=== PATIENT | female | born 1950 | race Two or more races ===

== ENCOUNTER 2022-07-30 08:44 | Emergency (ER) | payer OTHER ==
[~2022-07-30] VITALS: Ht 162.6 cm; Wt 57.4 kg
[2022-07-30] MEDS ORDERED: SODIUM CHLORIDE 0.9% 1,000 ML IV ONE (09:45)
[2022-07-30] MEDS ORDERED: KETOROLAC TROMETH 30 MG/ML 1ML VIAL IV ONE (09:45)
[2022-07-30] MEDS ORDERED: ONDANSETRON HCL 4 MG/2 ML VIAL IV ONE (09:45)
[2022-07-30 10:20] LABS: Urine Bacteria NONE SEEN /hpf (None Seen); Urine Blood 1+ /uL (Negative); Urine Specific Gravity 1.007 (1.001-1.035); Urine WBC 1 /hpf (0 - 5)
[2022-07-30 10:22] LABS: Basophils # (auto) 0 10 ^3/uL (0-0.2); Basophils % (auto) 0.7 % (0.0-2.0); Eosinophils # (auto) 0.2 10 ^3/uL (0-0.8); Eosinophils % (auto) 2.8 % (0.0-7.0); Hematocrit 46.1 % (36.0-46.0); Hemoglobin 15.3 g/dL (12.2-16.2); Lymphocytes # (auto) 1.8 10 ^3/uL (0.4-5.4); Lymphocytes % (auto) 26.9 % (10.0-50.0); Mean Corpuscular Hemoglobin 30.4 pg (28.0-32.0); Mean Corpuscular Hgb Conc. 33.2 g/dL (32.0-36.0); Mean Corpuscular Volume 91.4 fL (80.0-100.0); Monocytes # (auto) 0.4 10 ^3/uL (0-1.3); Monocytes % (auto) 6.7 % (0.0-12.0); Neutrophils # (auto) 4.2 10 ^3/uL (1.6-8.6); Neutrophils % (auto) 62.9 % (37.0-80.0); Nucleated Red Blood Cells % 0.2 %; Red Blood Cells 5.05 10^6/uL (4.0-5.20); Red Cell Distribution Width 14.6 % (11.8-14.3); White Blood Cell 6.7 10^3/uL (4.4-10.8)
[2022-07-30 10:36] LABS: Albumin 3.9 g/dL (3.4-5.0); Calcium 9.8 mg/dL (8.5-10.1)
[2022-07-30 10:40] LABS: Bilirubin, Total 0.9 mg/dL (0.2-1.0); Total Protein 8.5 g/dL (6.4-8.2)
[2022-07-30] MEDS ORDERED: IOHEXOL 300 MG/ML 100ML BOTTLE IJ ONE (11:39)
[2022-07-30 16:00] VITALS: BP 122/64
== END 2022-07-30 19:52 | disposition left against medical advice (07) ==
LOC: ER 08:51
DX: M54.50 Low back pain, unspecified (principal)
CPT/HCPCS: 36415; 74177; 80053; 81001; 83690; 85025; 96361; 96374; 96375; 99285; J1885; J2405; J7030; Q9967

== ENCOUNTER 2022-10-07 09:35 | Emergency (ER) | payer OTHER ==
[~2022-10-07] VITALS: Ht 162.6 cm; Wt 56.6 kg
[2022-10-07 10:19] LABS: Basophils # (auto) 0 10 ^3/uL (0-0.2); Eosinophils # (auto) 0.3 10 ^3/uL (0-0.8); Eosinophils % (auto) 6.3 % (0.0-7.0); Hematocrit 42.6 % (36.0-46.0); Hemoglobin 14.7 g/dL (12.2-16.2); Lymphocytes # (auto) 1.5 10 ^3/uL (0.4-5.4); Lymphocytes % (auto) 29.9 % (10.0-50.0); Mean Corpuscular Hemoglobin 31.1 pg (28.0-32.0); Mean Corpuscular Hgb Conc. 34.5 g/dL (32.0-36.0); Mean Corpuscular Volume 90.3 fL (80.0-100.0); Monocytes # (auto) 0.3 10 ^3/uL (0-1.3); Monocytes % (auto) 5.9 % (0.0-12.0); Neutrophils # (auto) 2.8 10 ^3/uL (1.6-8.6); Neutrophils % (auto) 56.9 % (37.0-80.0); Nucleated Red Blood Cells % 0.1 %; Red Blood Cells 4.71 10^6/uL (4.0-5.20); Red Cell Distribution Width 15.3 % (11.8-14.3)
[2022-10-07 10:39] LABS: Albumin 3.4 g/dL (3.4-5.0); Calcium 8.5 mg/dL (8.5-10.1); Potassium 3.5 mmol/L (3.5-5.1)
[2022-10-07 10:43] LABS: BUN/Creatinine Ratio 14.7; Bilirubin, Total 1.2 mg/dL (0.2-1.0); Total Protein 6.8 g/dL (6.4-8.2)
[2022-10-07 10:48] LABS: INR 1.1 (0.9-1.15); Partial Thromboplastin Time 29.1 sec (24.6-33.4)
[2022-10-07 13:29] LABS: Urine Bacteria MANY /hpf (None Seen); Urine Blood Negative /uL (Negative); Urine Mucus FEW (None Seen); Urine WBC 5 /hpf (0 - 5)
[2022-10-07 15:50] VITALS: BP 160/80
== END 2022-10-07 15:52 | disposition home or self-care (01) ==
LOC: ER 09:35
DX: D69.6 Thrombocytopenia, unspecified (principal); I10 Essential (primary) hypertension; M32.8 Other forms of systemic lupus erythematosus; M79.7 Fibromyalgia; Z90.49 Acquired absence of other specified parts of digestive tract; Z90.710 Acquired absence of both cervix and uterus
CPT/HCPCS: 36415; 80053; 81001; 85025; 85610; 85730; 86850; 86900; 86901; 93005

== ENCOUNTER 2023-10-28 08:34 | Emergency (ER) | payer OTHER ==
[~2023-10-28] VITALS: Ht 162.6 cm; Wt 68.0 kg
[2023-10-28 09:10] VITALS: BP 138/57; PULSE 73; RESP 16; TEMP 99.1; O2SAT 97
[2023-10-28] MEDS ORDERED: ACET-1080 PO (10:18)
[2023-10-28] MEDS: HYDROcodone-ACET 5/325MG TAB PO ONE (10:22)
== END 2023-10-28 10:24 | disposition home or self-care (01) ==
LOC: ER 08:34
DX: S76.012A Strain of muscle, fascia and tendon of left hip, initial encounter (principal); I10 Essential (primary) hypertension; Z90.49 Acquired absence of other specified parts of digestive tract; Z90.710 Acquired absence of both cervix and uterus; W18.2XXA Fall in (into) shower or empty bathtub, initial encounter; Y93.89 Activity, other specified; Y92.89 Other specified places as the place of occurrence of the external cause; Y99.8 Other external cause status
CPT/HCPCS: 73502

== ENCOUNTER 2024-01-02 20:20 | Inpatient (IN) | payer OTHER ==
[~2024-01-02] VITALS: Ht 162.6 cm; Wt 71.0 kg
[~2024-01-02 20:20] MED LIST: ACET-1080 PO
[2024-01-02] MEDS: dilTIAZem 25 MG/5 ML VIAL IV ONE (21:24)
[2024-01-02 21:33] LABS: Basophils # (auto) 0.1 10 ^3/uL (0-0.2); Basophils % (auto) 0.8 % (0.0-2.0); Eosinophils # (auto) 0.2 10 ^3/uL (0-0.8); Eosinophils % (auto) 2.6 % (0.0-7.0); Lymphocytes % (auto) 32.6 % (10.0-50.0); Mean Corpuscular Hgb Conc. 28.5 g/dL (32.0-36.0); Mean Corpuscular Volume 66.8 fL (80.0-100.0); Monocytes # (auto) 0.5 10 ^3/uL (0-1.3); Neutrophils # (auto) 3.3 10 ^3/uL (1.6-8.6); Red Blood Cells 3.14 10^6/uL (4.0-5.20)
[2024-01-02 21:34] LABS: Red Cell Distribution Width 20.6 % (11.8-14.3)
[2024-01-02 21:42] LABS: Alanine Aminotransferase 19 U/L (7-40); Alkaline Phosphatase 134 U/L (46-116); Anion Gap 9 (5-15); Aspartate Aminotransferase 23 U/L (13-40); Blood Urea Nitrogen 21 mg/dL (9-23); Calcium 8.4 mg/dL (8.7-10.4); Carbon Dioxide 18 mmol/L (20-30); Chloride 112 mmol/L (98-107); Glucose 106 mg/dL (74-106); Magnesium 1.9 mg/dL (1.6-2.6); Potassium 4.5 mmol/L (3.5-5.1); Sodium 139 mmol/L (136-145)
[2024-01-02 21:43] LABS: Albumin 3.5 g/dL (3.2-4.8); Bilirubin, Total 0.6 mg/dL (0.2-1.0); Total Protein 6.3 g/dL (5.7-8.2)
[2024-01-02 21:45] VITALS: PULSE 140; RESP 20; O2SAT 95
[2024-01-02 21:53] LABS: INR 1.3 (0.9-1.15); Prothrombin Time 13.5 sec (9.3-11.8)
[2024-01-03] VITALS (8 sets, daily range): BP systolic 93–152; BP diastolic 30–57; PULSE 75–98; RESP 14–21; TEMP 97.7–98.8; O2SAT 98–100
[2024-01-03] MEDS: dilTIAZem 25 MG/5 ML VIAL IV ONE (00:18)
[2024-01-03] MEDS: FUROSEMIDE 40 MG/4 ML VIAL IV ONE (00:45)
[2024-01-03] MEDS ORDERED: ACETAMINOPHEN 325 MG TAB PO PRN (00:45)
[2024-01-03] MEDS ORDERED: ONDANSETRON HCL 4 MG/2 ML VIAL IV PRN (00:45)
[2024-01-03] MEDS: SODIUM CHLORIDE 0.9% 250 ML IV ONE (00:50)
[2024-01-03] MEDS ORDERED: METOPROLOL TARTRATE 1MG/1ML-5ML VIAL IV PRN (01:00)
[2024-01-03] MEDS: ENOXAPARIN SOD 100 MG/1 ML SYRINGE SC SCH (01:09)
[2024-01-03] MEDS: AMIODARONE BOLUS KIT 100 ML IV ONE (03:56)
[2024-01-03] MEDS: AMIODARONE 450mg/250ml AE 250 ML IV SCH ×2 (04:26→10:04)
[2024-01-03] MEDS: HYDROcodone-ACET 5/325MG TAB PO PRN (05:22)
[2024-01-03 05:46] LABS: Basophils # (auto) 0.1 10 ^3/uL (0-0.2); Basophils % (auto) 0.8 % (0.0-2.0); Eosinophils # (auto) 0.3 10 ^3/uL (0-0.8); Eosinophils % (auto) 3.4 % (0.0-7.0); Hematocrit 18.5 % (36.0-46.0); Lymphocytes % (auto) 26.3 % (10.0-50.0); Mean Corpuscular Hemoglobin 19.6 pg (28.0-32.0); Mean Corpuscular Hgb Conc. 29.5 g/dL (32.0-36.0); Mean Corpuscular Volume 66.5 fL (80.0-100.0); Monocytes # (auto) 0.5 10 ^3/uL (0-1.3); Monocytes % (auto) 6.7 % (0.0-12.0); Neutrophils # (auto) 4.7 10 ^3/uL (1.6-8.6); Neutrophils % (auto) 62.8 % (37.0-80.0); Nucleated Red Blood Cells % 0.6 %; Red Blood Cells 2.78 10^6/uL (4.0-5.20); White Blood Cell 7.5 10^3/uL (4.4-10.8)
[2024-01-03 05:49] LABS: Anion Gap 8 (5-15); Carbon Dioxide 20 mmol/L (20-30); Chloride 111 mmol/L (98-107); Potassium 4.5 mmol/L (3.5-5.1); Sodium 139 mmol/L (136-145)
[2024-01-03 05:50] LABS: Calcium 8.2 mg/dL (8.7-10.4); Hemoglobin 5.4 g/dL (12.2-16.2)
[2024-01-03 05:54] LABS: % Iron Saturation 2.2 % (15-50)
[2024-01-03 05:55] LABS: BUN/Creatinine Ratio 19.6 (10.0-20.0); Blood Urea Nitrogen 19 mg/dL (9-23); Glucose 134 mg/dL (74-106)
[2024-01-03 08:01] LABS: Anisocytosis Slight; Hypochromia Moderate; Ovalocytes FEW; Platelet Estimate Adequate
[2024-01-03 08:02] LABS: Stomatocytes Few
[2024-01-03] MEDS: FERROUS SULFATE 325mg EC TAB PO SCH (10:03)
[2024-01-03] MEDS: FAMOTIDINE 20 MG TAB PO SCH (10:03)
[2024-01-03 19:58] LABS: Basophils # (auto) 0 10 ^3/uL (0-0.2); Basophils % (auto) 0.5 % (0.0-2.0); Eosinophils # (auto) 0.4 10 ^3/uL (0-0.8); Eosinophils % (auto) 5.4 % (0.0-7.0); Lymphocytes # (auto) 2.8 10 ^3/uL (0.4-5.4); Lymphocytes % (auto) 38.4 % (10.0-50.0); Mean Corpuscular Hemoglobin 21.3 pg (28.0-32.0); Mean Corpuscular Hgb Conc. 28.1 g/dL (32.0-36.0); Monocytes # (auto) 0.7 10 ^3/uL (0-1.3); Monocytes % (auto) 9.5 % (0.0-12.0); Neutrophils # (auto) 3.4 10 ^3/uL (1.6-8.6); Neutrophils % (auto) 46.2 % (37.0-80.0); Nucleated Red Blood Cells % 0.3 %; Red Blood Cells 3.29 10^6/uL (4.0-5.20); White Blood Cell 7.3 10^3/uL (4.4-10.8)
[2024-01-03 20:23] LABS: Red Cell Distribution Width 24.9 % (11.8-14.3)
[2024-01-03] MEDS ORDERED: LEVO88TA2 PO (23:04)
[2024-01-03] MEDS ORDERED: HYDR-4798 PO (23:05)
[2024-01-03] MEDS ORDERED: METO-289 PO (23:06)
[2024-01-04] VITALS (10 sets, daily range): BP systolic 119–152; BP diastolic 46–61; PULSE 65–77; RESP 18–22; TEMP 97.6–98.5; O2SAT 94–100
[2024-01-04 06:55] LABS: Basophils # (auto) 0.1 10 ^3/uL (0-0.2); Basophils % (auto) 1.3 % (0.0-2.0); Eosinophils # (auto) 0.5 10 ^3/uL (0-0.8); Eosinophils % (auto) 7.5 % (0.0-7.0); Hemoglobin 9.1 g/dL (12.2-16.2); Lymphocytes # (auto) 2.4 10 ^3/uL (0.4-5.4); Lymphocytes % (auto) 34.9 % (10.0-50.0); Mean Corpuscular Hgb Conc. 30.5 g/dL (32.0-36.0); Mean Corpuscular Volume 75.3 fL (80.0-100.0); Monocytes # (auto) 0.7 10 ^3/uL (0-1.3); Monocytes % (auto) 9.8 % (0.0-12.0); Neutrophils # (auto) 3.2 10 ^3/uL (1.6-8.6); Neutrophils % (auto) 46.5 % (37.0-80.0); Nucleated Red Blood Cells % 0.5 %; Red Blood Cells 3.98 10^6/uL (4.0-5.20)
[2024-01-04 07:01] LABS: Chloride 111 mmol/L (98-107); Potassium 4.9 mmol/L (3.5-5.1); Sodium 138 mmol/L (136-145)
[2024-01-04 07:02] LABS: Calcium 8.6 mg/dL (8.5-10.1); Carbon Dioxide 21 mmol/L (20-30)
[2024-01-04 07:06] LABS: Red Cell Distribution Width 27.3 % (11.8-14.3)
[2024-01-04 07:07] LABS: BUN/Creatinine Ratio 17.3 (10.0-20.0); Blood Urea Nitrogen 17 mg/dL (9-23); Glucose 107 mg/dL (74-106)
[2024-01-04 07:08] LABS: Anion Gap 6 (5-15)
[2024-01-04] MEDS: AMIODARONE HCL 200 MG TAB PO ONE (15:49)
[2024-01-04] MEDS: AMIODARONE HCL 200 MG TAB PO SCH (21:01)
[2024-01-05] VITALS (10 sets, daily range): BP systolic 115–161; BP diastolic 37–69; PULSE 58–78; RESP 16–20; TEMP 97.2–98.3; O2SAT 93–100
[2024-01-05 06:08] LABS: Chloride 112 mmol/L (98-107); Potassium 4.1 mmol/L (3.5-5.1); Sodium 140 mmol/L (136-145)
[2024-01-05 06:09] LABS: Anion Gap 6 (5-15); Calcium 8.4 mg/dL (8.5-10.1); Carbon Dioxide 22 mmol/L (20-30)
[2024-01-05 06:10] LABS: Basophils # (auto) 0 10 ^3/uL (0-0.2); Eosinophils # (auto) 0.5 10 ^3/uL (0-0.8); Monocytes # (auto) 0.5 10 ^3/uL (0-1.3); Neutrophils # (auto) 2.6 10 ^3/uL (1.6-8.6)
[2024-01-05 06:13] LABS: Basophils % (auto) 0.8 % (0.0-2.0); Eosinophils % (auto) 9.1 % (0.0-7.0); Hematocrit 27.1 % (36.0-46.0); Hemoglobin 8.3 g/dL (12.2-16.2); Lymphocytes # (auto) 2.1 10 ^3/uL (0.4-5.4); Lymphocytes % (auto) 36.4 % (10.0-50.0); Mean Corpuscular Hemoglobin 23.5 pg (28.0-32.0); Mean Corpuscular Hgb Conc. 30.4 g/dL (32.0-36.0); Mean Corpuscular Volume 77.4 fL (80.0-100.0); Monocytes % (auto) 8.6 % (0.0-12.0); Neutrophils % (auto) 45.1 % (37.0-80.0); Nucleated Red Blood Cells % 0.3 %; Red Blood Cells 3.51 10^6/uL (4.0-5.20); White Blood Cell 5.7 10^3/uL (4.4-10.8)
[2024-01-05 06:14] LABS: BUN/Creatinine Ratio 11.4 (10.0-20.0); Blood Urea Nitrogen 10 mg/dL (9-23); Glucose 85 mg/dL (74-106)
[2024-01-05 06:23] LABS: Red Cell Distribution Width 26.7 % (11.8-14.3)
[2024-01-05 08:02] LABS: Anisocytosis Moderate; Hypochromia Slight; Platelet Estimate Adequate; Tear Drop Cells FEW
[2024-01-05] MEDS ORDERED: MIDAZOLAM HCL 2MG/2ML 2ml VIAL (1mg/ml) ONE (13:48)
[2024-01-05] MEDS ORDERED: PROPOFOL 10 MG/ML 20 ML IV ONE (13:49)
[2024-01-05] MEDS ORDERED: ONDANSETRON HCL 4 MG/2 ML VIAL ONE (13:49)
[2024-01-05] MEDS ORDERED: LIDOCAINE 2% (LOCAL ANESTH.) PF 5ml SDV ONE (13:49)
[2024-01-05] MEDS ORDERED: ONDANSETRON HCL 4 MG/2 ML VIAL IV ONE (14:00)
[2024-01-05] MEDS ORDERED: PATIENTS OWN MEDICATION (eliquis 5 MG) PO SCH (18:00)
[2024-01-05] MEDS ORDERED: SENNA 8.6 MG TAB PO PRN (19:00)
[2024-01-05] MEDS: DOCUSATE SOD 100 MG CAP PO SCH (21:41)
[2024-01-05] MEDS: LACTULOSE 20Gm/30ML SOLN PO SCH (21:43)
[2024-01-06 01:00] VITALS: BP 104/46; PULSE 65; RESP 18; TEMP 97.8; O2SAT 97
[2024-01-06 05:00] VITALS: BP 99/42; PULSE 61; RESP 18; TEMP 98.3; O2SAT 97
[2024-01-06 06:46] VITALS: BP 131/54; PULSE 63; O2SAT 94
[2024-01-06 08:00] VITALS: PULSE 60; RESP 18; O2SAT 92
[2024-01-06 09:00] VITALS: BP 134/55; PULSE 67; RESP 16; TEMP 97.7; O2SAT 91
[2024-01-06] MEDS: APIXABAN 5 MG TAB PO SCH (09:53)
[2024-01-06] MEDS ORDERED: HYDR-4902 PO (12:41)
[2024-01-06] MEDS ORDERED: PANT40TA2 PO (12:41)
[2024-01-06] MEDS ORDERED: SUCR1SUS26 PO (12:41)
[2024-01-06] MEDS ORDERED: APIX5TAB PO (12:41)
[2024-01-06] MEDS ORDERED: AMIO200T33 PO (12:43)
[2024-01-06 13:00] VITALS: BP 140/60; PULSE 60; RESP 16; TEMP 98.4; O2SAT 96
[2024-01-06 14:05] LABS: Hemoglobin 8.5 g/dL (12.2-16.2)
[2024-01-06 14:07] LABS: Hematocrit 28.4 % (36.0-46.0)
== END 2024-01-06 17:10 | disposition home health service (06) | DRG 308 ==
LOC: EDBD 20:20 → ER 20:20 → TELE 01-03 00:46 → TELE-CENTR 01-03 22:45
PROVIDERS: ADMIT Nurse Practitioner Family; ATTEND Nurse Practitioner Family
PROC: 30233N1 Transfusion of Nonautologous Red Blood Cells into Peripheral Vein, Percutaneous Approach (ICD-10-PCS; 2024-01-03)
PROC: 05H933Z Insertion of Infusion Device into Right Brachial Vein, Percutaneous Approach (ICD-10-PCS; 2024-01-03)
PROC: B54MZZA Ultrasonography of Right Upper Extremity Veins, Guidance (ICD-10-PCS; 2024-01-03)
PROC: 0DJ08ZZ Inspection of Upper Intestinal Tract, Via Natural or Artificial Opening Endoscopic (ICD-10-PCS; principal; 2024-01-05 13:46)
DX: I49.9 Cardiac arrhythmia, unspecified (principal); N17.0 Acute kidney failure with tubular necrosis; M48.54XA Collapsed vertebra, not elsewhere classified, thoracic region, initial encounter for fracture; I48.20 Chronic atrial fibrillation, unspecified; D50.9 Iron deficiency anemia, unspecified; I10 Essential (primary) hypertension; M79.7 Fibromyalgia; S09.90XA Unspecified injury of head, initial encounter; S16.1XXA Strain of muscle, fascia and tendon at neck level, initial encounter; W18.39XA Other fall on same level, initial encounter; K44.9 Diaphragmatic hernia without obstruction or gangrene; Z53.20 Procedure and treatment not carried out because of patient's decision for unspecified reasons; K20.90 Esophagitis, unspecified without bleeding; Z90.710 Acquired absence of both cervix and uterus; Z90.49 Acquired absence of other specified parts of digestive tract; Y93.89 Activity, other specified; Y92.89 Other specified places as the place of occurrence of the external cause; Y99.8 Other external cause status; Z79.899 Other long term (current) drug therapy; Z80.3 Family history of malignant neoplasm of breast; Z87.891 Personal history of nicotine dependence
CPT/HCPCS: 36415; 70450; 71045; 71250; 72125; 72146; 73130; 73562; 73630; 74176; 80048; 80053; 82607; 83540; 83550; 83735; 83880; 84484; 85014; 85018; 85025; 85610; 85730; 86850; 86880; 86900; 86901; 86905; 86906; 86920; 86922; 86971; 93005; 93306; 96374; G0378; J2001; J2250; J2405; J2704

== ENCOUNTER 2024-06-02 12:12 | Inpatient (IN) | payer OTHER ==
[~2024-06-02] VITALS: Ht 162.6 cm; Wt 77.4 kg
[~2024-06-02 12:12] MED LIST changes: -ACET-1080 PO; +AMIO200T33 PO; +APIX5TAB PO; +HYDR-4902 PO; +LEVO88TA2 PO; +METO-289 PO; +PANT40TA2 PO; +SUCR1SUS26 PO
[2024-06-02 13:08] VITALS: PULSE 68; RESP 19; O2SAT 99
[2024-06-02] MEDS: SODIUM CHLORIDE 0.9% 1,000 ML IV ONE ×2 (13:15→15:24)
[2024-06-02 13:44] LABS: Basophils # (auto) 0.1 10 ^3/uL (0-0.2); Basophils % (auto) 1.2 % (0.0-2.0); Eosinophils # (auto) 0.3 10 ^3/uL (0-0.8); Eosinophils % (auto) 5.3 % (0.0-7.0); Hematocrit 18.5 % (36.0-46.0); Lymphocytes # (auto) 1.5 10 ^3/uL (0.4-5.4); Lymphocytes % (auto) 30.4 % (10.0-50.0); Mean Corpuscular Hemoglobin 19.9 pg (28.0-32.0); Mean Corpuscular Hgb Conc. 28.2 g/dL (32.0-36.0); Mean Corpuscular Volume 70.4 fL (80.0-100.0); Monocytes # (auto) 0.5 10 ^3/uL (0-1.3); Monocytes % (auto) 9.7 % (0.0-12.0); Neutrophils # (auto) 2.6 10 ^3/uL (1.6-8.6); Neutrophils % (auto) 53.4 % (37.0-80.0); Nucleated Red Blood Cells % 0.3 %; Platelet Count (auto) 181 10^3/uL (140-450); Red Blood Cells 2.63 10^6/uL (4.0-5.20); White Blood Cell 4.9 10^3/uL (4.4-10.8)
[2024-06-02 13:47] LABS: Hemoglobin 5.2 g/dL (12.2-16.2)
[2024-06-02 13:57] LABS: INR 2.17 (0.9-1.15); Prothrombin Time 21.7 sec (9.3-11.8)
[2024-06-02 14:04] LABS: Alanine Aminotransferase 19 U/L (7-40); Albumin 3.4 g/dL (3.2-4.8); Alkaline Phosphatase 95 U/L (46-116); Anion Gap 7 (5-15); Anisocytosis Slight; Aspartate Aminotransferase 27 U/L (13-40); BUN/Creatinine Ratio 14.8 (10.0-20.0); Bilirubin, Total 0.5 mg/dL (0.2-1.0); Blood Urea Nitrogen 16 mg/dL (9-23); Calcium 8.1 mg/dL (8.7-10.4); Carbon Dioxide 16 mmol/L (20-31); Chloride 118 mmol/L (98-107); Glucose 110 mg/dL (74-106); Hypochromia Marked; Lipase 27 U/L (12-53); Platelet Estimate Adequate; Potassium 4.7 mmol/L (3.5-5.1); Sodium 141 mmol/L (136-145); Total Protein 6.1 g/dL (5.7-8.2)
[2024-06-02 14:05] LABS: Ovalocytes FEW; Tear Drop Cells FEW
[2024-06-02 14:06] LABS: Lactic Acid w/Reflex 3.2 mmol/L (0.4-2.0)
[2024-06-02] MEDS ORDERED: IOHEXOL 300 MG/ML 100ML BOTTLE IJ ONE (14:42)
[2024-06-02] MEDS: PANTOPRAZOLE 40 MG/10 ML VIAL INJ IV ONE (16:42)
[2024-06-02] MEDS: ONDANSETRON HCL 4 MG/2 ML VIAL IV ONE (19:10)
[2024-06-02] MEDS: MORPHINE SULFATE 4 MG/ML SYR/VIAL IV ONE (19:11)
[2024-06-02 19:35] VITALS: PULSE 74; RESP 16; O2SAT 100
[2024-06-02] MEDS ORDERED: ACETAMINOPHEN 325 MG TAB PO PRN (20:30)
[2024-06-02] MEDS: SODIUM CHLORIDE 0.9% 1,000 ML IV SCH (20:30)
[2024-06-02 21:09] LABS: % Iron Saturation 3.8 % (15-50)
[2024-06-02] MEDS ORDERED: PANTOPRAZOLE 40 MG/10 ML VIAL INJ IV SCH (22:00)
[2024-06-02 22:19] VITALS: BP 141/63; PULSE 85; RESP 18; TEMP 97.7; O2SAT 99
[2024-06-02 22:35] VITALS: BP 141/63; PULSE 87; RESP 19; TEMP 97.7; O2SAT 94
[2024-06-03] VITALS (15 sets, daily range): BP systolic 99–132; BP diastolic 41–98; PULSE 69–81; RESP 16–18; TEMP 98–98.5; O2SAT 90–98
[2024-06-03] MEDS: ONDANSETRON HCL 4 MG/2 ML VIAL IV PRN (00:24)
[2024-06-03] MEDS: PANTOPRAZOLE 40 MG/10 ML VIAL INJ IV SCH (01:15)
[2024-06-03] MEDS: FUROSEMIDE 40 MG/4 ML VIAL IV ONE (04:30)
[2024-06-03 05:14] LABS: Urine Bacteria None Seen /hpf (None Seen)
[2024-06-03 05:25] LABS: Urine Blood Negative /uL (Negative); Urine Clarity Clear (Clear); Urine Color Light-Yellow (Yellow); Urine Protein, UAD Negative (Negative); Urine Specific Gravity 1.018 (1.001-1.035); Urine Urobilinogen Normal (Negative); Urine WBC 1 /hpf (0 - 5); Urine pH 5.5 (5.0-9.0)
[2024-06-03 05:38] LABS: Basophils # (auto) 0 10 ^3/uL (0-0.2); Eosinophils # (auto) 0.3 10 ^3/uL (0-0.8); Lymphocytes # (auto) 1.6 10 ^3/uL (0.4-5.4); Mean Corpuscular Hemoglobin 19.3 pg (28.0-32.0); Monocytes # (auto) 0.5 10 ^3/uL (0-1.3); Neutrophils # (auto) 2.1 10 ^3/uL (1.6-8.6)
[2024-06-03 05:39] LABS: Eosinophils % (auto) 6.5 % (0.0-7.0); Lymphocytes % (auto) 34.3 % (10.0-50.0); Mean Corpuscular Hgb Conc. 28.7 g/dL (32.0-36.0); Mean Corpuscular Volume 67.2 fL (80.0-100.0); Monocytes % (auto) 11.2 % (0.0-12.0); Nucleated Red Blood Cells % 0.3 %; Platelet Count (auto) 158 10^3/uL (140-450); Red Blood Cells 2.38 10^6/uL (4.0-5.20); White Blood Cell 4.5 10^3/uL (4.4-10.8)
[2024-06-03 05:41] LABS: Anion Gap 6 (5-15); Carbon Dioxide 19 mmol/L (20-31); Chloride 121 mmol/L (98-107); Potassium 4.5 mmol/L (3.5-5.1)
[2024-06-03 05:42] LABS: Calcium 7.9 mg/dL (8.7-10.4)
[2024-06-03 05:47] LABS: Blood Urea Nitrogen 17 mg/dL (9-23); Glucose 115 mg/dL (74-106)
[2024-06-03 05:54] LABS: Red Cell Distribution Width 20.3 % (11.8-14.3)
[2024-06-03 05:57] LABS: Hemoglobin 4.6 g/dL (12.2-16.2)
[2024-06-03 06:00] LABS: Sodium 146 mmol/L (136-145)
[2024-06-03 07:33] LABS: Anisocytosis Slight; Hypochromia Marked; Platelet Estimate Adequate
[2024-06-03 07:34] LABS: Ovalocytes FEW
[2024-06-03] MEDS: HYDROcodone-ACET 10/325MG TAB PO ONE (11:32)
[2024-06-03 12:32] LABS: Hemoglobin 4.8 g/dL (12.2-16.2)
[2024-06-03] MEDS: HYDROcodone-ACET 10/325MG TAB PO PRN (17:49)
[2024-06-03 21:59] LABS: Hematocrit 27.4 % (36.0-46.0)
[2024-06-03 22:01] LABS: Hemoglobin 8.6 g/dL (12.2-16.2)
[2024-06-04] VITALS (9 sets, daily range): BP systolic 112–128; BP diastolic 48–74; PULSE 68–84; RESP 12–19; TEMP 98–98.6; O2SAT 91–100
[2024-06-04 08:17] LABS: Basophils # (auto) 0 10 ^3/uL (0-0.2); Basophils % (auto) 0.6 % (0.0-2.0); Eosinophils # (auto) 0.5 10 ^3/uL (0-0.8); Lymphocytes # (auto) 2.1 10 ^3/uL (0.4-5.4); Monocytes # (auto) 0.6 10 ^3/uL (0-1.3); Neutrophils # (auto) 2.3 10 ^3/uL (1.6-8.6); Nucleated Red Blood Cells % 0.4 %; White Blood Cell 5.5 10^3/uL (4.4-10.8)
[2024-06-04 08:20] LABS: Eosinophils % (auto) 8.5 % (0.0-7.0); Hematocrit 27.3 % (36.0-46.0); Hemoglobin 8.6 g/dL (12.2-16.2); Lymphocytes % (auto) 38.4 % (10.0-50.0); Mean Corpuscular Hemoglobin 23.7 pg (28.0-32.0); Mean Corpuscular Hgb Conc. 31.4 g/dL (32.0-36.0); Mean Corpuscular Volume 75.6 fL (80.0-100.0); Monocytes % (auto) 10.6 % (0.0-12.0); Neutrophils % (auto) 41.9 % (37.0-80.0); Platelet Count (auto) 163 10^3/uL (140-450); Red Cell Distribution Width 25.1 % (11.8-14.3)
[2024-06-04 08:21] LABS: Chloride 118 mmol/L (98-107); Potassium 4.6 mmol/L (3.5-5.1); Sodium 145 mmol/L (136-145)
[2024-06-04 08:22] LABS: Anion Gap 8 (5-15); Carbon Dioxide 19 mmol/L (20-31)
[2024-06-04 08:23] LABS: Calcium 7.7 mg/dL (8.7-10.4)
[2024-06-04 08:27] LABS: Glucose 96 mg/dL (74-106)
[2024-06-04 08:28] LABS: Blood Urea Nitrogen 18 mg/dL (9-23)
[2024-06-04 11:30] LABS: Platelet Estimate Adequate
[2024-06-04 11:31] LABS: Anisocytosis Moderate; Hypochromia Moderate; Ovalocytes FEW; Tear Drop Cells FEW
[2024-06-04 11:37] LABS: Folate (Folic Acid) 11.3 ng/mL (>5.38)
[2024-06-04] MEDS ORDERED: MIDAZOLAM HCL 2MG/2ML 2ml VIAL (1mg/ml) ONE (12:53)
[2024-06-04] MEDS ORDERED: KETAMINE 50mg/ML 1ml syringe ONE (12:53)
[2024-06-04] MEDS ORDERED: fentaNYL CITRATE 100 MCG/2 ML VL ONE (12:54)
[2024-06-04] MEDS ORDERED: ONDANSETRON HCL 4 MG/2 ML VIAL ONE (12:55)
[2024-06-04] MEDS ORDERED: LIDOCAINE 2% (LOCAL ANESTH.) PF 5ml SDV ONE (12:55)
[2024-06-04] MEDS ORDERED: ONDANSETRON HCL 4 MG/2 ML VIAL IV ONE (13:30)
[2024-06-04] MEDS: GOLYTELY 4L KIT PO ONE (14:54)
[2024-06-05] VITALS (11 sets, daily range): BP systolic 109–159; BP diastolic 47–85; PULSE 67–88; RESP 13–18; TEMP 97.5–98.2; O2SAT 95–100
[2024-06-05] MEDS: MAGNESIUM CITRATE SOLUTION 300 ML BTL PO ONE (05:10)
[2024-06-05] MEDS: GOLYTELY 4L KIT PO ONE (05:15)
[2024-06-05 06:07] LABS: Basophils # (auto) 0 10 ^3/uL (0-0.2); Basophils % (auto) 0.7 % (0.0-2.0); Hemoglobin 7.5 g/dL (12.2-16.2); Mean Corpuscular Hgb Conc. 31.4 g/dL (32.0-36.0); Monocytes # (auto) 0.5 10 ^3/uL (0-1.3); Red Cell Distribution Width 25.4 % (11.8-14.3)
[2024-06-05 06:09] LABS: Eosinophils # (auto) 0.3 10 ^3/uL (0-0.8); Eosinophils % (auto) 5.6 % (0.0-7.0); Hematocrit 23.8 % (36.0-46.0); Lymphocytes # (auto) 1.7 10 ^3/uL (0.4-5.4); Lymphocytes % (auto) 33.2 % (10.0-50.0); Mean Corpuscular Hemoglobin 23.9 pg (28.0-32.0); Mean Corpuscular Volume 76.2 fL (80.0-100.0); Monocytes % (auto) 10.5 % (0.0-12.0); Neutrophils # (auto) 2.5 10 ^3/uL (1.6-8.6); Nucleated Red Blood Cells % 0.3 %; Platelet Count (auto) 138 10^3/uL (140-450); Red Blood Cells 3.12 10^6/uL (4.0-5.20)
[2024-06-05 06:15] LABS: Chloride 119 mmol/L (98-107); Potassium 4.2 mmol/L (3.5-5.1); Sodium 145 mmol/L (136-145)
[2024-06-05 06:16] LABS: Anion Gap 8 (5-15); Calcium 7.8 mg/dL (8.7-10.4); Carbon Dioxide 18 mmol/L (20-31)
[2024-06-05 06:21] LABS: Blood Urea Nitrogen 10 mg/dL (9-23); Glucose 93 mg/dL (74-106)
[2024-06-05 06:35] LABS: Anisocytosis Moderate; Hypochromia Moderate; Platelet Estimate Decreased
[2024-06-05 06:36] LABS: Ovalocytes FEW
[2024-06-05] MEDS ORDERED: PROPOFOL 10 MG/ML 20 ML IV ONE (12:28)
[2024-06-05] MEDS ORDERED: KETAMINE 50mg/ML 1ml syringe ONE (12:28)
[2024-06-05] MEDS ORDERED: MIDAZOLAM HCL 2MG/2ML 2ml VIAL (1mg/ml) ONE (12:28)
[2024-06-05] MEDS ORDERED: fentaNYL CITRATE 100 MCG/2 ML VL ONE (12:28)
[2024-06-05] MEDS ORDERED: ONDANSETRON HCL 4 MG/2 ML VIAL ONE (12:29)
[2024-06-05] MEDS ORDERED: ONDANSETRON HCL 4 MG/2 ML VIAL IV ONE (13:15)
[2024-06-05] MEDS ORDERED: PANT40TA2 PO (16:10)
[2024-06-05] MEDS ORDERED: FER325T PO (16:10)
[2024-06-06 01:00] VITALS: BP 165/72; PULSE 88; RESP 15; TEMP 98.2; O2SAT 98
[2024-06-06 04:55] VITALS: BP 106/45; PULSE 74; RESP 14; TEMP 98.1; O2SAT 95
[2024-06-06 08:00] VITALS: PULSE 66
[2024-06-06 09:00] VITALS: BP 149/82; PULSE 79; RESP 18; TEMP 98.3; O2SAT 98
[2024-06-06 13:00] VITALS: BP 148/73; PULSE 76; RESP 17; TEMP 98.1; O2SAT 97
[2024-06-06 13:07] VITALS: BP 118/65; TEMP 36.8
== END 2024-06-06 16:14 | disposition home health service (06) | DRG 392 ==
LOC: ER 12:12 → TELE 20:41 → TELE-CENTR 22:00
PROVIDERS: ADMIT Nurse Practitioner Family; ATTEND Internal Medicine
PROC: 30233N1 Transfusion of Nonautologous Red Blood Cells into Peripheral Vein, Percutaneous Approach (ICD-10-PCS; 2024-06-03)
PROC: 0DB68ZX Excision of Stomach, Via Natural or Artificial Opening Endoscopic, Diagnostic (ICD-10-PCS; 2024-06-04)
PROC: 0DB48ZX Excision of Esophagogastric Junction, Via Natural or Artificial Opening Endoscopic, Diagnostic (ICD-10-PCS; 2024-06-04)
PROC: 0DB98ZX Excision of Duodenum, Via Natural or Artificial Opening Endoscopic, Diagnostic (ICD-10-PCS; principal; 2024-06-04 12:47)
PROC: 0DBP8ZX Excision of Rectum, Via Natural or Artificial Opening Endoscopic, Diagnostic (ICD-10-PCS; 2024-06-05)
PROC: 0DBL8ZX Excision of Transverse Colon, Via Natural or Artificial Opening Endoscopic, Diagnostic (ICD-10-PCS; 2024-06-05)
DX: K29.70 Gastritis, unspecified, without bleeding (principal); K20.90 Esophagitis, unspecified without bleeding; K57.30 Diverticulosis of large intestine without perforation or abscess without bleeding; D50.9 Iron deficiency anemia, unspecified; E11.9 Type 2 diabetes mellitus without complications; I11.0 Hypertensive heart disease with heart failure; E86.1 Hypovolemia; E66.9 Obesity, unspecified; I95.9 Hypotension, unspecified; K63.5 Polyp of colon; I25.10 Atherosclerotic heart disease of native coronary artery without angina pectoris; I48.0 Paroxysmal atrial fibrillation; I50.9 Heart failure, unspecified; K44.9 Diaphragmatic hernia without obstruction or gangrene; M79.7 Fibromyalgia; K64.8 Other hemorrhoids; E03.9 Hypothyroidism, unspecified; Z79.899 Other long term (current) drug therapy; Z90.49 Acquired absence of other specified parts of digestive tract; Z90.710 Acquired absence of both cervix and uterus; Z87.891 Personal history of nicotine dependence; Z79.01 Long term (current) use of anticoagulants; Z82.49 Family history of ischemic heart disease and other diseases of the circulatory system; Z83.3 Family history of diabetes mellitus; Z80.3 Family history of malignant neoplasm of breast; Z68.29 Body mass index [BMI] 29.0-29.9, adult; K62.1 Rectal polyp
CPT/HCPCS: 36415; 71045; 74177; 80048; 80053; 81001; 82270; 82607; 82728; 82746; 83540; 83550; 83605; 83690; 84443; 84484; 85014; 85018; 85025; 85610; 86850; 86860; 86870; 86880; 86900; 86901; 86906; 86922; 96374; 96375; 99291; G0378; J2003; J2250; J2405; J2470; J2704

== ENCOUNTER 2024-07-02 12:09 | Inpatient (IN) | payer OTHER, MEDICAID ==
[~2024-07-02] VITALS: Ht 162.6 cm; Wt 66.1 kg
[~2024-07-02 12:09] MED LIST changes: -APIX5TAB PO; +FER325T PO
--- NOTE | 2024-07-02 13:39 | ED.PDOC ---
History of Present Illness HPI Comments 74 y/o F, with a Hx of AFIB w/Eliquis use, anemia, CHF, fibromyalgia, gastritis, GERD, HLD, HTN, and hypothyroidism, presents with spouse for c/o bilateral leg swelling, pain, and redness and shortness of breath for 1 week. Patient reports unprovoked onset of symptoms a week ago that has been progressively worsening since. Patient comments on pain being a 10/10 and having no similar symptoms in the past. Patient states on no recent stress, injuries, sick contact, travel, spoiled food intake, or substance use/exposure. Patient endorses no additional relevant or pertinent past medical, surgical, or family Hx. Patient denies having any chest pain palpitations, weakness, numbness, tingling, fever, chills, or other associated symptoms or modifiers at this time. Chief Complaint: Extremity Swelling Time Seen by MD: 13:10 Primary Care Provider: MAAME Rod Notes: Nurses Notes, Medications, Allergies Allergies: Coded Allergies: NO KNOWN ALLERGIES (Unverified , 07/30/22) Home Meds Active Scripts Ferrous Sulfate (FERROUS SULFATE) 325 Mg Tb, 1 TAB PO DAILY, #30 TAB 3 Refills Prov:MERCEDEZ GUADARRAMA MD 06/05/24 Pantoprazole Sodium Sesquihydr (Protonix) 40 Mg Tab, 40 MG PO DAILY, #30 TAB Prov:MERCEDEZ GUADARRAMA MD 06/05/24 Amiodarone Hcl (Amiodarone Hcl) 200 Mg Tab, 200 MG PO BID, #60 TAB Prov:MERCEDEZ GUADARRAMA MD 01/06/24 Hydrocodone-Acetaminophen (Hydrocodone Bitartrate/AC 5-325 mg) 1 Tab Tab, 1 TAB PO Q8HPRN PRN, #14 TAB Prov:MERCEDEZ GUADARRAMA MD 01/06/24 Sucralfate (CARAFATE SUSP) 1 Gm/10 Ml Ss, 10 ML PO BID for 30 Days, #600 ML 1 Refill Prov:MERCEDEZ GUADARRAMA MD 01/06/24 Reported Medications Metoprolol Succinate (Metoprolol Succinate Er) 50 Mg Tab, 1 TAB PO DAILY, #30 TAB 5 Refills 01/03/24 Levothyroxine Sodium (Synthroid) 88 Mcg Tab, 1 TAB PO DAILY, #30 TAB 5 Refills 01/03/24 Information Source: Patient, Spouse Mode of Arrival: Wheelchair Severity: Moderate Timing: Weeks Duration: Since onset Prehospital treatment: None Past Medical History PAST MEDICAL HISTORY: AFIB (w/Eliquis use ), Anemia, CHF, GERD, High Lipids, HTN, Thyroid (hypothyroidism) Past Medical History (Other): fibromyalgia, gastritis Surgical History: Cholecystectomy, Hysterectomy Surgical History (Other): right-breast biopsy, EGD, colonoscopy CRIB TENDER History: Denies all CRIB TENDER Hx Family History Family History: No family hx of Cancer, No family hx of Heart ramona, No family hx ofKidney ramona, No family hx of Liver ramona, No family hx of Lung ramona, No family hx of Stroke, Family hx of DM, Family hx of HTN Social History Smoker: Non-Smoker Alcohol: Denies ETOH Use Drugs: Denies Drug Use Lives In: Home Constitutional: denies: chills, diaphoresis, fatigue, fever, malaise, sweats, weakness, others EENTM: denies: blurred vision, double vision, ear bleeding, ear discharge, ear drainage, ear pain, ear ringing, eye pain, eye redness, hearing loss, mouth pain, mouth swelling, nasal discharge, nose bleeding, nose congestion, nose pain, photophobia, tearing, throat pain, throat swelling, voice changes, others Respiratory: reports: shortness of breath; denies: cough, hemoptysis, orthopnea, SOB at rest, SOB with excertion, stridor, wheezing, others Cardiovascular: denies: chest pain, dizzy spells, diaphoresis, Dyspnea on exertion, edema, irregular heart beat, left arm pain, lightheadedness, palpitations, PND, syncope, others Gastrointestinal: denies: abdomen distended, abdominal pain, blood streaked bowels, constipated, diarrhea, dysphagia, difficulty swallowing, hematemesis, melena, nausea, poor appetite, poor fluid intake, rectal bleeding, rectal pain, vomiting, others Genitourinary: denies: abnormal vagina bleeding, burning, dyspareunia, dysuria, flank pain, frequency, hematuria, incontinence, pain, , vagina discha rge, urgency, others Neurological: denies: dizziness, fainting, headache, left sided numbness, left sided weakness, numbness, paresthesia, pre-existing deficit, right sided numbness, right sided weakness, seizure, speech problems, tingling, tremors, weakness, others Musculoskeletal: reports: others (bilateral leg swelling and pain ); denies: back pain, gout, joint pain, joint swelling, muscle pain, muscle stiffness, neck pain Integumetry: reports: change in color (bilateral leg redness); denies: bruises, change in hair/nails, dryness, laceration, lesions, lumps, rash, wounds, others Allergic/Immunocompromised: denies: Difficulty Healing, Frequent Infections, Hives, Itching, others Hematologic/Lymphatic: denies: anemia, blood clots, easy bleeding, easy bruising, swollen glands, others Endocrine: denies: excessive hunger, excessive sweating, excessive thirst, excessive urination, flushing, intolerance to cold, intolerance to heat, unexplained weight gain, unexplained weight loss, others Psychiatric: denies: anxiety, bipolar disorder, depression, hopeless, panic disorder, schizophrenia, sleepless, suicidal, others All Other Systems: Reviewed and Negative Physical Exam General Appearance: Moderate Distress HEENT: Normal ENT Inspection, Pharynx Normal, TMs Normal Neck: Full Range of Motion, Non-Tender, Normal, Normal Inspection Respiratory: Chest Non-Tender, Lungs Clear, No Accessory Muscle Use, No Respiratory Distress, Normal Breath Sounds Cardiovascular: No Edema, No JVD, No Murmur, No Gallop, Normal Peripheral Pulses, Regular Rate/Rhythm Breast Exam: Deferred Gastrointestinal: No Organomegaly, Non Tender, No Pulsatile Mass, Normal Bowel Sounds, Soft Genitalia: Deferred Pelvic: Deferred Rectal: Deferred Extremities: Inflammation, No calf tenderness, Normal capillary refill, Pedal edema Musculoskeletal : Apperance: Normal Neurologic: Alert, medical laboratory assistant II-XII nml as Tested, Motor Weakness, Normal Affect, Normal Mood, No Sensory Deficits Cerebellar Function: Normal Reflexes: Normal Skin: Dry, Normal Color, Warm Lymphatic: No Adenopathy Was a procedure done? Was a procedure done?: No Differential Dx Considerations may include: DVT, PE, cellulitis, dermatitis, fluid overload X-Ray, Labs, Meds, VS Vital Signs Date Time Temp Pulse Resp B/P (MAP) Pulse Ox O2 Delivery O2 Flow Rate FiO2 07/02/24 14:10 Room Air* 0 21 07/02/24 14:02 120/37 07/02/24 13:58 97.8 61 16 120/37 (64) 95 97.8 07/02/24 12:39 98.3 66 18 112/50 (70) 98 Lab Test 07/02/24 16:03 07/02/24 15:19 07/02/24 13:52 Range/Units Urine Color Light-yellow Yellow Urine Clarity Clear Clear Urine pH 5.5 5.0-9.0 Urine Specific [place] 1.010 1.001-1.035 Urine Protein Negative Negative Urine Ketones Negative Negative Urine Blood Negative Negative /uL Urine Nitrite Negative Negative Urine Bilirubin Negative Negative Urine Urobilinogen Normal Negative mg/dL Urine Leukocyte Esterase 1+ Negative /uL Urine RBC 1 0 - 4 /hpf Urine WBC 12 0 - 5 /hpf Urine Squamous Epithelial Cells Few <5 /hpf Urine Bacteria Few H None Seen /hpf Urine Hyaline Casts Few 0 - 2 /lpf Urine Glucose Normal Normal mg/dL Erythrocyte Sedimentation Rate Pending Troponin I High Sensitivity 11 10 </=34 ng/L White Blood Count 5.2 4.4-10.8 10^3/uL Red Blood Count 3.61 L 4.0-5.20 10^6/uL Hemoglobin 8.1 L 12.2-16.2 g/dL Hematocrit 28.7 L 36.0-46.0 % Mean Corpuscular Volume 79.6 L 80.0-100.0 fL Mean Corpuscular Hemoglobin 22.4 L 28.0-32.0 pg Mean Corpuscular Hemoglobin Concent 28.1 L 32.0-36.0 g/dL Red Cell Distribution Width 29.6 H 11.8-14.3 % Platelet Count 157 140-450 10^3/uL Mean Platelet Volume 8.5 6.9-10.8 fL Neutrophils (%) (Auto) 51.1 37.0-80.0 % Lymphocytes (%) (Auto) 26.8 10.0-50.0 % Monocytes (%) (Auto) 12.9 H 0.0-12.0 % Eosinophils (%) (Auto) 8.0 H 0.0-7.0 % Basophils (%) (Auto) 1.2 0.0-2.0 % Neutrophils # (Auto) 2.6 1.6-8.6 10 ^3/uL Lymphocytes # (Auto) 1.4 0.4-5.4 10 ^3/uL Monocytes # (Auto) 0.7 0-1.3 10 ^3/uL Eosinophils # (Auto) 0.4 0-0.8 10 ^3/uL Basophils # (Auto) 0.1 0-0.2 10 ^3/uL Nucleated Red Blood Cells 0.2 % Platelet Estimate Adequate Hypochromasia (manual) Moderate Anisocytosis (manual) Marked Microcytosis Slight Ovalocytes Few [place] Cells Few Sodium Level 142 136-145 mmol/L Potassium Level 4.4 3.5-5.1 mmol/L Chloride Level 117 H 98-107 mmol/L Carbon Dioxide Level 17 L 20-31 mmol/L Anion Gap 8 5-15 Blood Urea Nitrogen 11 9-23 mg/dL Creatinine 1.05 H 0.550-1.02 mg/dL Glomerular Filtration Rate Calc 56 >90 mL/min BUN/Creatinine Ratio 10.5 10.0-20.0 Serum Glucose 121 H 74-106 mg/dL Calcium Level 9.0 8.7-10.4 mg/dL B-Type Natriuretic Peptide 519.71 0-100 pg/mL Current Medications Medications (Trade) Dose Ordered Sig/Sara Route Start Time Stop Time Status Last Admin Furosemide (Lasix Injection) 40 mg ONCE ONCE IV 07/02/24 13:15 07/02/24 14:20 DC 07/02/24 14:02 IV Hep-Lock was established The patient was given Lasix 40 mg IV push The chest x-ray shows what seems to be some pulmonary edema The BNP is 519.71 The chemistry panel is within normal limits The patient's CBC shows significant anemia with a hemoglobin of 8.1 and hematocrit 28.7 The urine test is positive for UTI The patient is being given Rocephin 1 g IV piggyback for the infection Images Reviewed?: Images reviewed and evaluated by me Time of 1ST Reevaluation: 13:40 Reevaluation 1ST: Unchanged Time of 2ND Reevaluation: 16:39 Reevaluation 2ND: Unchanged Patient Education/Counseling: Diagnosis, Treatment, Prognosis Family Education/Counseling: Diagnosis, Treatment, Prognosis Departure 1 Departure Time of Disposition: 16:39 Impression: Primary Impression: Acute pulmonary edema Additional Impression: Severe anemia Disposition: ADMITTED INPATIENT Admit to: [facility] Condition: Fair Critical Care Note Critical Care Time?: No Stability Stability form required: Yes Unstable for transfer: Telemetry monitoring (Telemetry monitoring required), ED Physician Assesment (Clinical assesment) Heart Score Heart Score: Heart Score Response (Comments) Value History Moderate Suspicious 1 EKG Normal 0 Age >65 2 Risk Factors >3 or Hx ASHD 2 Troponin Normal limit 0 Total 5 I personally scribed for CLAUDIO YUSUF MD ([email or web address]) on 07/02/24 at 13:39. Electronically submitted by Nitish Benton ([email or web address]). CLAUDIO YUSUF MD Jul 02, 2024 13:39
--- NOTE | 2024-07-02 13:41 | DVH ---
CHEST RADIOGRAPH Indication:sob Technique: Frontal and lateral view of the chest was obtained Comparison: None FINDINGS: Lines and Tubes: Left-sided pacemaker/ AICD with 2 cardiac leads. Lungs: Questionable mild interstitial pulmonary edema. Pleura: No effusion. No pneumothorax. Cardiomediastinal contours: Mild cardiomegaly Bones: Cervical fixation hardware seen in the left clavicle. IMPRESSION: 1. Questionable mild interstitial pulmonary edema.
[2024-07-02] MEDS: FUROSEMIDE 40 MG/4 ML VIAL IV ONE (14:02)
[2024-07-02 14:11] LABS: Basophils # (auto) 0.1 10 ^3/uL (0-0.2); Basophils % (auto) 1.2 % (0.0-2.0); Eosinophils # (auto) 0.4 10 ^3/uL (0-0.8); Hematocrit 28.7 % (36.0-46.0); Hemoglobin 8.1 g/dL (12.2-16.2); Lymphocytes # (auto) 1.4 10 ^3/uL (0.4-5.4); Lymphocytes % (auto) 26.8 % (10.0-50.0); Mean Corpuscular Hemoglobin 22.4 pg (28.0-32.0); Mean Corpuscular Hgb Conc. 28.1 g/dL (32.0-36.0); Mean Corpuscular Volume 79.6 fL (80.0-100.0); Monocytes # (auto) 0.7 10 ^3/uL (0-1.3); Monocytes % (auto) 12.9 % (0.0-12.0); Neutrophils # (auto) 2.6 10 ^3/uL (1.6-8.6); Neutrophils % (auto) 51.1 % (37.0-80.0); Nucleated Red Blood Cells % 0.2 %; Platelet Count (auto) 157 10^3/uL (140-450); Red Blood Cells 3.61 10^6/uL (4.0-5.20); Red Cell Distribution Width 29.6 % (11.8-14.3); White Blood Cell 5.2 10^3/uL (4.4-10.8)
[2024-07-02 14:26] LABS: Platelet Estimate Adequate
[2024-07-02 14:28] LABS: Anisocytosis Marked; Hypochromia Moderate; Ovalocytes FEW
[2024-07-02 15:15] LABS: Chloride 117 mmol/L (98-107); Potassium 4.4 mmol/L (3.5-5.1); Sodium 142 mmol/L (136-145)
[2024-07-02 15:16] LABS: Anion Gap 8 (5-15); Carbon Dioxide 17 mmol/L (20-31)
[2024-07-02 15:21] LABS: BUN/Creatinine Ratio 10.5 (10.0-20.0); Blood Urea Nitrogen 11 mg/dL (9-23); Glucose 121 mg/dL (74-106)
[2024-07-02 16:19] LABS: Urine Bacteria FEW /hpf (None Seen); Urine Blood Negative /uL (Negative); Urine Clarity Clear (Clear); Urine Color Light-Yellow (Yellow); Urine Hyaline Cast FEW /lpf (0 - 2); Urine Protein, UAD Negative (Negative); Urine Urobilinogen Normal (Negative); Urine WBC 12 /hpf (0 - 5); Urine pH 5.5 (5.0-9.0)
[2024-07-02 17:00] VITALS: BP 108/54; PULSE 64; RESP 17; TEMP 98.3; O2SAT 95
[2024-07-02] MEDS ORDERED: ACETAMINOPHEN 325 MG TAB PO PRN (17:00)
[2024-07-02] MEDS ORDERED: DOCUSATE SOD 100 MG CAP PO PRN (17:00)
[2024-07-02] MEDS ORDERED: NITROGLYCERIN 0.4 MG SL TAB SL PRN (17:00)
[2024-07-02] MEDS ORDERED: ONDANSETRON HCL 4 MG/2 ML VIAL IV PRN (17:00)
[2024-07-02] MEDS ORDERED: MORPHINE SULFATE INJ 2 MG/ml SYRG IV PRN (17:00)
[2024-07-02] MEDS: cefTRIAXone 1GM/50ML D5W 50 ML IV ONE (17:01)
[2024-07-02 17:29] LABS: Erythrocyte Sedimentation Rate 17 mm/hr (0-20)
[2024-07-02] MEDS: SUCRALFATE 1 GM/10 ML ORAL SUSP PO SCH (20:23)
[2024-07-02] MEDS: FUROSEMIDE 40 MG/4 ML VIAL IV SCH (20:23)
[2024-07-02] MEDS: HYDROcodone-ACET 5/325MG TAB PO PRN (20:24)
[2024-07-02] MEDS: AMIODARONE HCL 200 MG TAB PO SCH (20:29)
[2024-07-03] VITALS (12 sets, daily range): BP systolic 93–133; BP diastolic 36–69; PULSE 60–90; RESP 16–22; TEMP 97.9–98.5; O2SAT 91–100
--- NOTE | 2024-07-03 00:57 | DVHHP2 ---
Admitting Diagnosis: Acute CHF exacerbation, Bilateral leg swelling, UTI History of Present Illness History Source: Patient Exam Limitations: No limitations HPI Mrs. Laxmi Chaivs is a 74 year old female with a history of AFIB w/Eliquis use, anemia, CHF, fibromyalgia, gastritis, GERD, HLD, HTN, and hypothyroidism, presents with a chief complaint bilateral leg swelling, pain, and redness and shortness of breath for 1 week. Patient reports unprovoked onset of symptoms a week ago that has been progressively worsening since. Patient denies fevers, chills, chest pain. Home Meds Active Scripts Ferrous Sulfate (FERROUS SULFATE) 325 Mg Tb, 1 TAB PO DAILY, #30 TAB 3 Refills Prov:MERCEDEZ GUADARRAMA MD 06/05/24 Pantoprazole Sodium Sesquihydr (Protonix) 40 Mg Tab, 40 MG PO DAILY, #30 TAB Prov:MERCEDEZ GUADARRAMA MD 06/05/24 Amiodarone Hcl (Amiodarone Hcl) 200 Mg Tab, 200 MG PO BID, #60 TAB Prov:MERCEDEZ GUADARRAMA MD 01/06/24 Hydrocodone-Acetaminophen (Hydrocodone Bitartrate/AC 5-325 mg) 1 Tab Tab, 1 TAB PO Q8HPRN PRN, #14 TAB Prov:MERCEDEZ GUADARRAMA MD 01/06/24 Sucralfate (CARAFATE SUSP) 1 Gm/10 Ml Ss, 10 ML PO BID for 30 Days, #600 ML 1 Refill Prov:MERCEDEZ GUADARRAMA MD 01/06/24 Reported Medications Metoprolol Succinate (Metoprolol Succinate Er) 50 Mg Tab, 1 TAB PO DAILY, #30 TAB 5 Refills 01/03/24 Levothyroxine Sodium (Synthroid) 88 Mcg Tab, 1 TAB PO DAILY, #30 TAB 5 Refills 01/03/24 Past Medical History Cardiac: AFIB, CHF, HTN, Hyperlipidemia Pulmonary: No pertinent Hx Central Nervous System: No pertinent Hx GI: GERD, Gastritis Hemotology/Oncology: No pertinent Hx Hepatobiliary: No pertinent Hx Psychiatric: No pertinent Hx Musculoskeletal: No pertinent Hx Rheumotologic: Fibromyalgia Infectious Disease: No peritnent Hx ENT: No pertinent Hx Renal/: No pertinent Hx Endocrine: Hypothyroidism Dermatology: No pertinent Hx Patient Family History: Cardiovascular disease G8 MOTHER Diabetes mellitus G8 MOTHER Hypertension G8 MOTHER Smoker: No Hx (Negative) Alocohol: None Drugs: None Lives with: With family Domestic Violence: Neg Review of Systems Constitutional: No symptom reported Ears, Nose, & Throat: No symptom reported Eyes: No symptom reported Pulmonary/Respiratory: No symptom reported Cardiovascular: No symptom reported Gastrointestinal: No symptom reported Genitourinary: No symptom reported Musculoskeletal: Leg pain (bilateral leg swelling and pain) Skin: No symptom reported Psychiatric: No symptom reported Endocrine: No symptom reported Hemotologic/Lymphatic: No symptom reported H&P Exam Vital Signs Vital Signs Date Time Temp Pulse Resp B/P (MAP) Pulse Ox O2 Delivery O2 Flow Rate FiO2 07/02/24 23:42 97.8 70 16 131/56 (81) 97 97.8 07/02/24 14:10 Room Air* 0 21 General Appeara: Well developed, Well nourished, Normal Appearance Head Exam: Normal inspection Neck Exam: Normal inspection, Non-tender, Normal alignment Eye Exam: bilateral eye Normal inspection, bilateral eye PERRL, bilateral eye EOMI Ear Exam: bilateral ear Auricle normal Nasal Exam: Normal inspection Mouth: Normal Inspection Pulmonary/Respiratory: Normal inspection, Normal breath sounds, Chest non- tender, Lungs clear Cardiovascular/Chest: Normal inspection, Regular rate, Normal Rhythm Peripheral Pulses: 2+ dorsalis pedis (R), 2+ dorsalis pedis (L), 2+ Radial (R), 2+ Radial (L) Abdominal Exam: Normal bowel sounds, Soft Legs: bilateral leg pain, bilateral leg soft tissue tenderness, bilateral leg 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: Normal hearing, Normal speech, PERRL Neuro/Mental St: Alert, Oriented Appearance: Appropriate appearance, Appropriate insight Thoughts/Psych: Normal thought pattern Skin Exam: Normal inspection, Warm/dry, Pallor, Other (erythema bilateral lower extremity, ) Labs/Xrays Labs Test 07/02/24 16:03 07/02/24 15:19 07/02/24 13:52 Range/Units Urine Color Light-yellow Yellow Urine Clarity Clear Clear Urine pH 5.5 5.0-9.0 Urine Specific [place] 1.010 1.001-1.035 Urine Protein Negative Negative Urine Ketones Negative Negative Urine Blood Negative Negative /uL Urine Nitrite Negative Negative Urine Bilirubin Negative Negative Urine Urobilinogen Normal Negative mg/dL Urine Leukocyte Esterase 1+ Negative /uL Urine RBC 1 0 - 4 /hpf Urine WBC 12 0 - 5 /hpf Urine Squamous Epithelial Cells Few <5 /hpf Urine Bacteria Few H None Seen /hpf Urine Hyaline Casts Few 0 - 2 /lpf Urine Glucose Normal Normal mg/dL Erythrocyte Sedimentation Rate 17 0-20 mm/hr Troponin I High Sensitivity 11 </=34 ng/L White Blood Count 5.2 4.4-10.8 10^3/uL Red Blood Count 3.61 L 4.0-5.20 10^6/uL Hemoglobin 8.1 L 12.2-16.2 g/dL Hematocrit 28.7 L 36.0-46.0 % Mean Corpuscular Volume 79.6 L 80.0-100.0 fL Mean Corpuscular Hemoglobin 22.4 L 28.0-32.0 pg Mean Corpuscular Hemoglobin Concent 28.1 L 32.0-36.0 g/dL Red Cell Distribution Width 29.6 H 11.8-14.3 % Platelet Count 157 140-450 10^3/uL Mean Platelet Volume 8.5 6.9-10.8 fL Neutrophils (%) (Auto) 51.1 37.0-80.0 % Lymphocytes (%) (Auto) 26.8 10.0-50.0 % Monocytes (%) (Auto) 12.9 H 0.0-12.0 % Eosinophils (%) (Auto) 8.0 H 0.0-7.0 % Basophils (%) (Auto) 1.2 0.0-2.0 % Neutrophils # (Auto) 2.6 1.6-8.6 10 ^3/uL Lymphocytes # (Auto) 1.4 0.4-5.4 10 ^3/uL Monocytes # (Auto) 0.7 0-1.3 10 ^3/uL Eosinophils # (Auto) 0.4 0-0.8 10 ^3/uL Basophils # (Auto) 0.1 0-0.2 10 ^3/uL Nucleated Red Blood Cells 0.2 % Platelet Estimate Adequate Hypochromasia (manual) Moderate Anisocytosis (manual) Marked Microcytosis Slight Ovalocytes Few [place] Cells Few Sodium Level 142 136-145 mmol/L Potassium Level 4.4 3.5-5.1 mmol/L Chloride Level 117 H 98-107 mmol/L Carbon Dioxide Level 17 L 20-31 mmol/L Anion Gap 8 5-15 Blood Urea Nitrogen 11 9-23 mg/dL Creatinine 1.05 H 0.550-1.02 mg/dL Glomerular Filtration Rate Calc 56 >90 mL/min BUN/Creatinine Ratio 10.5 10.0-20.0 Serum Glucose 121 H 74-106 mg/dL Calcium Level 9.0 8.7-10.4 mg/dL B-Type Natriuretic Peptide 519.71 0-100 pg/mL Assessment/Plan Problem List: (1) Acute exacerbation of CHF (congestive heart failure) (2) Localized swelling of both lower legs (3) UTI (urinary tract infection) Plan 74 yo female with known history of atrial fibrillation, CHF, hypertension, hyperlipidemia, anemia, gastritis, GERD, Fibromyalgia, Hypothyroidism presents to the hospital with bilateral lower extremity swelling. 1. Acute CHF exacerbation 2. Bilateral lower extremity swelling/cellulitis 3. Urinary tract infection 4. Anemia Admit telemetry unit Cardiology consultation, 2D echocardiogram IV diuresis Furosemide Antihypertensive Metoprolol PO Amiodarone PT evaluation Fluid restriction, Strict I&O 's IV antibiotic Ceftriaxone, Vancomycin Urine culture Discussed all above with patient who verbalizes agreement and understanding of care plan. All questions were answered. Discussed assessment and care plan with supervising and admitting MD Dr. Guadarrama. Plan discussed with: Patient, Other Code Visit Code Visit Total Time (mins): 45 Additional Comments Additional Comments Additional Comments Patient was seen and evaluated by me I agree with the assessment and plan as outlined by my nurse practitioner. NICK SEARS Jul 03, 2024 00:57 MERCEDEZ GUADARRAMA MD Jul 03, 2024 19:15
[2024-07-03] MEDS: LEVOTHYROXINE SODIUM 88 MCG TAB PO SCH (05:42)
[2024-07-03] MEDS ORDERED: VANCOMYCIN PER PHARMACY 0 MG IV SCH (08:15)
[2024-07-03] MEDS: cefTRIAXone 1GM/50ML D5W 50 ML IV SCH (10:02)
[2024-07-03] MEDS: METOPROLOL SUCCINATE XL 50 MG TAB PO SCH (10:02)
[2024-07-03] MEDS: PANTOPRAZOLE 40 MG TAB PO SCH (10:02)
[2024-07-03] MEDS: FERROUS SULFATE 325mg EC TAB PO SCH (10:02)
[2024-07-03] MEDS: ENOXAPARIN SOD 40 MG/0.4 ML SYRINGE SC SCH (10:04)
[2024-07-03 10:21] LABS: Basophils # (auto) 0.1 10 ^3/uL (0-0.2); Basophils % (auto) 1.3 % (0.0-2.0); Eosinophils # (auto) 0.4 10 ^3/uL (0-0.8); Eosinophils % (auto) 8.3 % (0.0-7.0); Hematocrit 25.7 % (36.0-46.0); Hemoglobin 7.8 g/dL (12.2-16.2); Lymphocytes # (auto) 1.5 10 ^3/uL (0.4-5.4); Lymphocytes % (auto) 31.1 % (10.0-50.0); Mean Corpuscular Hemoglobin 22.8 pg (28.0-32.0); Mean Corpuscular Hgb Conc. 30.2 g/dL (32.0-36.0); Mean Corpuscular Volume 75.4 fL (80.0-100.0); Monocytes # (auto) 0.6 10 ^3/uL (0-1.3); Monocytes % (auto) 12.9 % (0.0-12.0); Neutrophils # (auto) 2.3 10 ^3/uL (1.6-8.6); Neutrophils % (auto) 46.4 % (37.0-80.0); Platelet Count (auto) 180 10^3/uL (140-450); Red Blood Cells 3.41 10^6/uL (4.0-5.20); Red Cell Distribution Width 29.9 % (11.8-14.3); White Blood Cell 4.9 10^3/uL (4.4-10.8)
--- NOTE | 2024-07-03 12:41 | DVHINCON2 ---
Date of service: Jul 03, 2024 History of Present Illness Mrs. Laxmi Chavis is a 74 year old female with a history of AFIB w/Eliquis use, anemia, CHF, fibromyalgia, gastritis, GERD, HLD, HTN, and hypothyroidism, presents with a chief complaint bilateral leg swelling, pain, and redness and shortness of breath for 1 week. Patient reports unprovoked onset of symptoms a week ago that has been progressively worsening since. Patient denies fevers, chills, chest pain. Home Meds Active Scripts Ferrous Sulfate (FERROUS SULFATE) 325 Mg Tb, 1 TAB PO DAILY, #30 TAB 3 Refills Prov:MERCEDEZ GUADARRAMA MD 06/05/24 Pantoprazole Sodium Sesquihydr (Protonix) 40 Mg Tab, 40 MG PO DAILY, #30 TAB Prov:MERCEDEZ GUADARRAMA MD 06/05/24 Amiodarone Hcl (Amiodarone Hcl) 200 Mg Tab, 200 MG PO BID, #60 TAB Prov:MERCEDEZ GUADARRAMA MD 01/06/24 Hydrocodone-Acetaminophen (Hydrocodone Bitartrate/AC 5-325 mg) 1 Tab Tab, 1 TAB PO Q8HPRN PRN, #14 TAB Prov:MERCEDEZ GUADARRAMA MD 01/06/24 Sucralfate (CARAFATE SUSP) 1 Gm/10 Ml Ss, 10 ML PO BID for 30 Days, #600 ML 1 Refill Prov:MERCEDEZ GUADARRAMA MD 01/06/24 Reported Medications Metoprolol Succinate (Metoprolol Succinate Er) 50 Mg Tab, 1 TAB PO DAILY, # Past Medical History reviewed Family History: Cardiovascular disease G8 MOTHER Diabetes mellitus G8 MOTHER Hypertension G8 MOTHER Allergies: Coded Allergies: NO KNOWN ALLERGIES (Unverified , 07/30/22) Home Meds Active Scripts Ferrous Sulfate (FERROUS SULFATE) 325 Mg Tb, 1 TAB PO DAILY, #30 TAB 3 Refills Prov:MERCEDEZ GUADARRAMA MD 06/05/24 Pantoprazole Sodium Sesquihydr (Protonix) 40 Mg Tab, 40 MG PO DAILY, #30 TAB Prov:MERCEDEZ GUADARRAMA MD 06/05/24 Amiodarone Hcl (Amiodarone Hcl) 200 Mg Tab, 200 MG PO BID, #60 TAB Prov:MERCEDEZ GUADARRAMA MD 01/06/24 Hydrocodone-Acetaminophen (Hydrocodone Bitartrate/AC 5-325 mg) 1 Tab Tab, 1 TAB PO Q8HPRN PRN, #14 TAB Prov:MERCEDEZ GUADARRAMA MD 01/06/24 Sucralfate (CARAFATE SUSP) 1 Gm/10 Ml Ss, 10 ML PO BID for 30 Days, #600 ML 1 Refill Prov:MERCEDEZ GUADARRAMA MD 01/06/24 Reported Medications Metoprolol Succinate (Metoprolol Succinate Er) 50 Mg Tab, 1 TAB PO DAILY, #30 TAB 5 Refills 01/03/24 Levothyroxine Sodium (Synthroid) 88 Mcg Tab, 1 TAB PO DAILY, #30 TAB 5 Refills 01/03/24 Current Medications Current Medications Medications (Trade) Dose Ordered Sig/Sara Route PRN Reason Start Time Stop Time Status Last Admin Acetaminophen/ Hydrocodone Bitart ([place] 5/325MG Tab) 1 tab Q4HP PRN PO MODERATE PAIN (4-6 PAIN SCALE) 07/02/24 17:00 07/03/24 06:26 Ondansetron HCl (Zofran) 4 mg Q4HP PRN IV NAUSEA / VOMITING 07/02/24 17:00 Docusate Sodium (Colace Capsule) 100 mg BIDPRN PRN PO FOR CONSTIPATION 07/02/24 17:00 Enoxaparin Sodium (Lovenox) 40 mg DAILY SC 07/03/24 10:00 07/03/24 10:04 Acetaminophen (Tylenol Tablet) 650 mg Q6HP PRN PO PAIN SCALE 1-3 OR TEMP>100.4 07/02/24 17:00 Nitroglycerin (Ntrostat Sublingual) 0.4 mg Q5MINP PRN SL FOR CHEST PAIN 07/02/24 17:00 Morphine Sulfate 2 mg Q30M PRN IV FOR CHEST PAIN 07/02/24 17:00 Amiodarone HCl (Cordarone Tablet) 200 mg BID PO 07/02/24 22:00 07/03/24 10:02 Ferrous Sulfate 325 mg DAILY PO 07/03/24 10:00 07/03/24 10:02 Levothyroxine Sodium (Synthroid Tablet) 88 mcg QAM PO 07/03/24 07:00 07/03/24 05:42 Metoprolol Succinate (Toprol Xl) 50 mg DAILY PO 07/03/24 10:00 07/03/24 10:02 Pantoprazole Sodium (Protonix Tablet) 40 mg DAILY PO 07/03/24 10:00 07/03/24 10:02 Sucralfate (Carafate Susp) 1 gm BID PO 07/02/24 22:00 07/03/24 10:01 Furosemide (Lasix Injection) 40 mg BIDD IV 07/02/24 18:00 07/03/24 05:42 Ceftriaxone Sodium 50 ml @ 100 mls/hr DAILY IV 07/03/24 10:00 07/03/24 10:02 Vancomycin HCl 0 ml @ 0 mls/hr UD IV 07/03/24 08:15 Review of Systems 10 pt ros otherwise negative Vital Signs Vital Signs Date Time Temp Pulse Resp B/P (MAP) Pulse Ox O2 Delivery O2 Flow Rate FiO2 07/03/24 11:46 60 07/03/24 10:02 107/37 07/03/24 05:00 98.5 17 98 98.5 07/03/24 00:10 Room Air* 0 21 Physical Exam nad s1 s2 rrr diffuse rhonhci abd soft nt/nd Labs/Diagnostic Data Labs Test 07/03/24 09:47 07/02/24 16:03 07/02/24 15:19 07/02/24 13:52 Range/Units White Blood Count 4.9 4.4-10.8 10^3/uL Red Blood Count 3.41 L 4.0-5.20 10^6/uL Hemoglobin 7.8 L 12.2-16.2 g/dL Hematocrit 25.7 #L 36.0-46.0 % Mean Corpuscular Volume 75.4 #L 80.0-100.0 fL Mean Corpuscular Hemoglobin 22.8 L 28.0-32.0 pg Mean Corpuscular Hemoglobin Concent 30.2 L 32.0-36.0 g/dL Red Cell Distribution Width 29.9 H 11.8-14.3 % Platelet Count 180 140-450 10^3/uL Mean Platelet Volume 8.4 6.9-10.8 fL Neutrophils (%) (Auto) 46.4 37.0-80.0 % Lymphocytes (%) (Auto) 31.1 10.0-50.0 % Monocytes (%) (Auto) 12.9 H 0.0-12.0 % Eosinophils (%) (Auto) 8.3 H 0.0-7.0 % Basophils (%) (Auto) 1.3 0.0-2.0 % Neutrophils # (Auto) 2.3 1.6-8.6 10 ^3/uL Lymphocytes # (Auto) 1.5 0.4-5.4 10 ^3/uL Monocytes # (Auto) 0.6 0-1.3 10 ^3/uL Eosinophils # (Auto) 0.4 0-0.8 10 ^3/uL Basophils # (Auto) 0.1 0-0.2 10 ^3/uL Nucleated Red Blood Cells 0.0 % Creatinine 1.17 H 0.550-1.02 mg/dL Glomerular Filtration Rate Calc 49 >90 mL/min Urine Color Light-yellow Yellow Urine Clarity Clear Clear Urine pH 5.5 5.0-9.0 Urine Specific [place] 1.010 1.001-1.035 Urine Protein Negative Negative Urine Ketones Negative Negative Urine Blood Negative Negative /uL Urine Nitrite Negative Negative Urine Bilirubin Negative Negative Urine Urobilinogen Normal Negative mg/dL Urine Leukocyte Esterase 1+ Negative /uL Urine RBC 1 0 - 4 /hpf Urine WBC 12 0 - 5 /hpf Urine Squamous Epithelial Cells Few <5 /hpf Urine Bacteria Few H None Seen /hpf Urine Hyaline Casts Few 0 - 2 /lpf Urine Glucose Normal Normal mg/dL Erythrocyte Sedimentation Rate 17 0-20 mm/hr Troponin I High Sensitivity 11 </=34 ng/L Platelet Estimate Adequate Hypochromasia (manual) Moderate Anisocytosis (manual) Marked Microcytosis Slight Ovalocytes Few Blaise Cells Few Sodium Level 142 136-145 mmol/L Potassium Level 4.4 3.5-5.1 mmol/L Chloride Level 117 H 98-107 mmol/L Carbon Dioxide Level 17 L 20-31 mmol/L Anion Gap 8 5-15 Blood Urea Nitrogen 11 9-23 mg/dL BUN/Creatinine Ratio 10.5 10.0-20.0 Serum Glucose 121 H 74-106 mg/dL Calcium Level 9.0 8.7-10.4 mg/dL B-Type Natriuretic Peptide 519.71 0-100 pg/mL Assessment acute on chronic HF diastolic HTN HL hx of afib elevated bnp obesity hx of ppm Plan/Recommendation check echo iv lasix cont tele , pt is SR cont home meds anemia workup--hgb is low Plan discussed with: Patient NEY PEREIRA MD Jul 03, 2024 12:41
[2024-07-03] MEDS: VANCOMYCIN 1GM/200ML PREMIX 200 ML IV ONE (12:44)
[2024-07-04] VITALS (7 sets, daily range): BP systolic 99–117; BP diastolic 39–59; PULSE 56–62; RESP 18–23; TEMP 97.7–98.7; O2SAT 95–100
[2024-07-04 07:08] LABS: Basophils # (auto) 0.1 10 ^3/uL (0-0.2); Eosinophils # (auto) 0.6 10 ^3/uL (0-0.8); Hemoglobin 8.3 g/dL (12.2-16.2); Lymphocytes # (auto) 1.7 10 ^3/uL (0.4-5.4); Monocytes # (auto) 0.8 10 ^3/uL (0-1.3); White Blood Cell 5.2 10^3/uL (4.4-10.8)
[2024-07-04 07:13] LABS: Basophils % (auto) 1.4 % (0.0-2.0); Eosinophils % (auto) 10.9 % (0.0-7.0); Hematocrit 27.5 % (36.0-46.0); Mean Corpuscular Hemoglobin 22.8 pg (28.0-32.0); Mean Corpuscular Hgb Conc. 30.1 g/dL (32.0-36.0); Mean Corpuscular Volume 75.7 fL (80.0-100.0); Monocytes % (auto) 15.4 % (0.0-12.0); Neutrophils # (auto) 2.1 10 ^3/uL (1.6-8.6); Neutrophils % (auto) 40.3 % (37.0-80.0); Nucleated Red Blood Cells % 0.2 %; Platelet Count (auto) 170 10^3/uL (140-450); Red Blood Cells 3.63 10^6/uL (4.0-5.20)
[2024-07-04 07:18] LABS: Red Cell Distribution Width 30.3 % (11.8-14.3)
--- NOTE | 2024-07-04 07:41 | DVHPN2 ---
Progress Note Date Seen: Jul 04, 2024 Medical Necessity Reason Pt with a Central, PICC or Fol: No Subjective Patient reports: Feels better Objective vital signs Vital Sign Date Time Temp Pulse Resp B/P (MAP) Pulse Ox O2 Delivery O2 Flow Rate FiO2 07/04/24 06:30 112/47 07/04/24 05:00 97.9 62 23 100 97.9 07/03/24 20:30 Room Air* 0 21 Total Intake and Output 07/03/24 07/03/24 07/04/24 15:00 23:00 07:00 Intake Total 940 ml 525 ml Output Total 750 ml Balance 190 ml 525 ml medications Current Medications Medications Dose Ordered Sig/Sara Route Start Time Stop Time Status Last Admin Dose Admin Acetaminophen/ Hydrocodone Bitart 1 tab Q4HP PRN PO 07/02/24 17:00 07/04/24 06:49 1 TAB Ondansetron HCl 4 mg Q4HP PRN IV 07/02/24 17:00 Docusate Sodium 100 mg BIDPRN PRN PO 07/02/24 17:00 Enoxaparin Sodium 40 mg DAILY SC 07/03/24 10:00 07/03/24 10:04 40 MG Acetaminophen 650 mg Q6HP PRN PO 07/02/24 17:00 Nitroglycerin 0.4 mg Q5MINP PRN SL 07/02/24 17:00 Morphine Sulfate 2 mg Q30M PRN IV 07/02/24 17:00 Amiodarone HCl 200 mg BID PO 07/02/24 22:00 07/03/24 21:20 200 MG Ferrous Sulfate 325 mg DAILY PO 07/03/24 10:00 07/03/24 10:02 325 MG Levothyroxine Sodium 88 mcg QAM PO 07/03/24 07:00 07/04/24 06:48 88 MCG Metoprolol Succinate 50 mg DAILY PO 07/03/24 10:00 07/03/24 10:02 50 MG Pantoprazole Sodium 40 mg DAILY PO 07/03/24 10:00 07/03/24 10:02 40 MG Sucralfate 1 gm BID PO 07/02/24 22:00 07/03/24 21:20 1 GM Furosemide 40 mg BIDD IV 07/02/24 18:00 07/04/24 06:30 40 MG Ceftriaxone Sodium 50 ml @ 100 mls/hr DAILY IV 07/03/24 10:00 07/03/24 10:02 100 MLS/HR Vancomycin HCl 0 ml @ 0 mls/hr UD IV 07/03/24 08:15 Examination: GENERAL:Abnormal, HEENT:Abnormal, LUNGS:Abnormal, CVS:Abnormal, ABDOMEN:Abnormal laboratory and microbiology Laboratory Tests 07/04/24 06:48 07/02/24 13:52 Test 07/02/24 13:52 Range/Units Serum Glucose 121 H 74-106 mg/dL Microbiology Date/Time Source Procedure Growth Status 07/02/24 16:03 Voided Urine Urine Culture - Preliminary Resulted Problem List/Assessment/Plan Problem List/Assessment/Plan hx of ppm htn obesity sob anemia watch hgb, fu echo today Plan discussed with: Patient Date of Service: Jul 04, 2024 Billing Provider: NEY PEREIRA MD Common Visit Codes: NOT BILLABLE NEY PEREIRA MD Jul 04, 2024 07:41
--- NOTE | 2024-07-04 07:49 | DVHSR ---
APPROVED REPORT EXAM: Two-dimensional and M-mode echocardiogram with Doppler and color Doppler. Blood Pressure: 106/42 mmHg INDICATION CHF exacerbation RISK FACTORS Height: 5'4", Weight: 172 DIMENSIONS LVDd4.4 (3.8-5.7cm)LA (2D)6.2 (1.9-4.0cm)Aortic Root3.3 (2.0-3.7cm) LVDs2.9 (2.5-4.0cm)LA (MM) (1.9-4.0cm)Aortic Cusp Exc1.7 (1.5-2.0cm) EF (%) 60.0 (55-70%)Rt. Atrium4.9 (1.9-4.0cm)Asc. Aorta cm IVSd1.3 (0.7-1.1cm)RV (D) (1.8-2.4cm) PWd1.3 (0.7-1.1cm) Mitral Valve MitralMitral Stenosis E wave1.23m/sMV Mean GR.mmHg A wave0.38m/sMV Peak GR.mmHg E/A ratio3.22D MVAcm2 DECEL [id number] 1/2 Timems Aortic Valve Aortic ValveAortic Stenosis V11.34m/Doris Mean GR.7mmHg V22.00m/Doris Peak GR.16mmHg LVOT Diameter1.8 (1.8-2.4cm)Doppler AVA1.70cm2 Pulmonic Valve V21.40m/s Tricuspid Valve TR Velocity2.93m/s [id number] Other Information Technically limited study due to body habitus. Conclusion lvef 60% by visual estimate mild LVH severe dilated left atrium moderate MAC noted
[2024-07-04 07:55] LABS: Anisocytosis Marked; Hypochromia Moderate; Ovalocytes FEW; Platelet Estimate Adequate
--- NOTE | 2024-07-04 14:20 | DVHPN2 ---
Subjective Overnight events noted. Patient was swellings to 2+ pitting edema. 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 Current Medications Medications Dose Ordered Sig/Sara Route Start Time Stop Time Status Last Admin Dose Admin Acetaminophen/ Hydrocodone Bitart 1 tab Q4HP PRN PO 07/02/24 17:00 07/04/24 06:49 1 TAB Ondansetron HCl 4 mg Q4HP PRN IV 07/02/24 17:00 Docusate Sodium 100 mg BIDPRN PRN PO 07/02/24 17:00 Enoxaparin Sodium 40 mg DAILY SC 07/03/24 10:00 07/04/24 08:52 40 MG Acetaminophen 650 mg Q6HP PRN PO 07/02/24 17:00 Nitroglycerin 0.4 mg Q5MINP PRN SL 07/02/24 17:00 Morphine Sulfate 2 mg Q30M PRN IV 07/02/24 17:00 Amiodarone HCl 200 mg BID PO 07/02/24 22:00 07/04/24 08:50 200 MG Ferrous Sulfate 325 mg DAILY PO 07/03/24 10:00 07/04/24 08:50 325 MG Levothyroxine Sodium 88 mcg QAM PO 07/03/24 07:00 07/04/24 06:48 88 MCG Metoprolol Succinate 50 mg DAILY PO 07/03/24 10:00 07/04/24 08:50 50 MG Pantoprazole Sodium 40 mg DAILY PO 07/03/24 10:00 07/04/24 08:50 40 MG Sucralfate 1 gm BID PO 07/02/24 22:00 07/04/24 08:51 1 GM Furosemide 40 mg BIDD IV 07/02/24 18:00 07/04/24 06:30 40 MG Ceftriaxone Sodium 50 ml @ 100 mls/hr DAILY IV 07/03/24 10:00 07/04/24 10:43 100 MLS/HR Vancomycin HCl 0 ml @ 0 mls/hr UD IV 07/03/24 08:15 Vancomycin HCl 200 ml @ 200 mls/hr DAILY@1200 IV 07/04/24 12:00 Laboratory Results Laboratory Tests 07/02/24 13:52 07/04/24 06:48 Urinalysis Test 07/02/24 16:03 Urine Color Light-yellow (Yellow) Urine Clarity Clear (Clear) Urine pH 5.5 (5.0-9.0) Urine Specific [place] 1.010 (1.001-1.035) Urine Protein Negative (Negative) Urine Ketones Negative (Negative) Urine Blood Negative /uL (Negative) Urine Nitrite Negative (Negative) Urine Bilirubin Negative (Negative) Urine Urobilinogen Normal mg/dL (Negative) Urine Leukocyte Esterase 1+ /uL (Negative) Urine RBC 1 /hpf (0 - 4) Urine WBC 12 /hpf (0 - 5) Urine Squamous Epithelial Cells Few /hpf (<5) Urine Bacteria Few /hpf (None Seen) H Urine Hyaline Casts Few /lpf (0 - 2) Urine Glucose Normal mg/dL (Normal) Microbiology Microbiology Date/Time Source Procedure Growth Status 07/02/24 16:03 Voided Urine Urine Culture - Preliminary Resulted Assessment/Plan Assessment/Plan 71-year-old female with a known history of chronic AFib currently on Eliquis, permanent pacemaker placement, hypertension, congestive heart failure with diastolic dysfunction this has been to the hospital with a bilateral lower extremity swelling found to have 1. Acute on chronic diastolic heart failure exacerbation 2. Chronic AFib 3. Bilateral lower extremity cellulitis 4. Hypertension 5. Permanent pacemaker placement 6. Peptic ulcer disease -continue Protonix and Carafate, resume home dual Eliquis, continue IV diuretics, follow up Cardiology recommendations -daily weight strict I&Os, Plan discussed with: Patient My Orders Orders - MERCEDEZ GUADARRAMA MD Procedure Category Date Status Time (Nf) Eliquis PHA 07/04/24 Verified 18:00 Date of Service: Jul 04, 2024 Billing Provider: MERCEDEZ GUADARRAMA MD Common Visit Codes: NOT BILLABLE MERCEDEZ GUADARRAMA MD Jul 04, 2024 14:20
[2024-07-04] MEDS: VANCOMYCIN 1GM/200ML PREMIX 200 ML IV SCH (17:28)
[2024-07-04] MEDS: APIXABAN 5 MG TAB PO SCH (17:39)
[2024-07-05] VITALS (8 sets, daily range): BP systolic 95–119; BP diastolic 32–49; PULSE 58–68; RESP 16–18; TEMP 97.7–98.7; O2SAT 91–100
--- NOTE | 2024-07-05 14:56 | DVHPN2 ---
Subjective Overnight events noted. Patient was swellings to 2+ pitting edema. 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 Current Medications Medications Dose Ordered Sig/Sara Route Start Time Stop Time Status Last Admin Dose Admin Acetaminophen/ Hydrocodone Bitart 1 tab Q4HP PRN PO 07/02/24 17:00 07/05/24 11:12 1 TAB Ondansetron HCl 4 mg Q4HP PRN IV 07/02/24 17:00 Docusate Sodium 100 mg BIDPRN PRN PO 07/02/24 17:00 Acetaminophen 650 mg Q6HP PRN PO 07/02/24 17:00 Nitroglycerin 0.4 mg Q5MINP PRN SL 07/02/24 17:00 Morphine Sulfate 2 mg Q30M PRN IV 07/02/24 17:00 Amiodarone HCl 200 mg BID PO 07/02/24 22:00 07/05/24 08:35 200 MG Ferrous Sulfate 325 mg DAILY PO 07/03/24 10:00 07/05/24 08:33 325 MG Levothyroxine Sodium 88 mcg QAM PO 07/03/24 07:00 07/05/24 06:34 88 MCG Metoprolol Succinate 50 mg DAILY PO 07/03/24 10:00 07/04/24 08:50 50 MG Pantoprazole Sodium 40 mg DAILY PO 07/03/24 10:00 07/05/24 08:35 40 MG Sucralfate 1 gm BID PO 07/02/24 22:00 07/05/24 08:37 1 GM Furosemide 40 mg BIDD IV 07/02/24 18:00 07/05/24 06:34 40 MG Ceftriaxone Sodium 50 ml @ 100 mls/hr DAILY IV 07/03/24 10:00 07/05/24 08:38 100 MLS/HR Vancomycin HCl 0 ml @ 0 mls/hr UD IV 07/03/24 08:15 Vancomycin HCl 200 ml @ 200 mls/hr DAILY@1200 IV 07/04/24 12:00 07/05/24 11:12 200 MLS/HR Apixaban 5 mg BIDWM PO 07/04/24 18:00 07/05/24 08:33 5 MG Laboratory Results Laboratory Tests 07/02/24 13:52 07/04/24 06:48 Chemistry Test 07/05/24 14:25 Albumin Pending Urinalysis Test 07/02/24 16:03 Urine Color Light-yellow (Yellow) Urine Clarity Clear (Clear) Urine pH 5.5 (5.0-9.0) Urine Specific [place] 1.010 (1.001-1.035) Urine Protein Negative (Negative) Urine Ketones Negative (Negative) Urine Blood Negative /uL (Negative) Urine Nitrite Negative (Negative) Urine Bilirubin Negative (Negative) Urine Urobilinogen Normal mg/dL (Negative) Urine Leukocyte Esterase 1+ /uL (Negative) Urine RBC 1 /hpf (0 - 4) Urine WBC 12 /hpf (0 - 5) Urine Squamous Epithelial Cells Few /hpf (<5) Urine Bacteria Few /hpf (None Seen) H Urine Hyaline Casts Few /lpf (0 - 2) Urine Glucose Normal mg/dL (Normal) Microbiology Microbiology Date/Time Source Procedure Growth Status 07/02/24 16:03 Voided Urine Urine Culture - Preliminary Resulted Assessment/Plan Assessment/Plan 71-year-old female with a known history of chronic AFib currently on Eliquis, permanent pacemaker placement, hypertension, congestive heart failure with diastolic dysfunction this has been to the hospital with a bilateral lower extremity swelling found to have 1. Acute on chronic diastolic heart failure exacerbation 2. Chronic AFib 3. Bilateral lower extremity cellulitis 4. Hypertension 5. Permanent pacemaker placement 6. Peptic ulcer disease -continue Protonix and Carafate, resume home dose Eliquis, continue IV diuretics, follow up Cardiology recommendations -daily weight strict I&Os, Plan discussed with: Patient My Orders Orders - MERCEDEZ GUADARRAMA MD Procedure Category Date Status Time Albumin LAB 07/05/24 In Process 13:58 Date of Service: Jul 05, 2024 Billing Provider: MERCEDEZ GUADARRAMA MD Common Visit Codes: NOT BILLABLE MERCEDEZ GUADARRAMA MD Jul 05, 2024 14:56
[2024-07-06] VITALS (8 sets, daily range): BP systolic 101–123; BP diastolic 35–65; PULSE 60–125; RESP 16–20; TEMP 97.6–98.4; O2SAT 91–98
--- NOTE | 2024-07-06 12:59 | DVHPN2 ---
Progress Note - Dictate Date Seen: Jul 06, 2024 Medical Necessity Reason Pt with a Central, PICC or Fol: No Subjective She is admitted here with lower extremity swelling edema and redness. Patient is seen and evaluated today and chart is reviewed and took over care. vital signs Vital Sign Date Time Temp Pulse Resp B/P (MAP) Pulse Ox O2 Delivery O2 Flow Rate FiO2 07/06/24 12:40 97.6 125 17 119/65 (83) 91 97.6 07/05/24 20:00 Room Air* 0 21 Total Intake and Output 07/05/24 07/05/24 07/06/24 15:00 23:00 07:00 Intake Total 250 ml 1000 ml 500 ml Output Total 1000 ml 600 ml Balance 250 ml 0 ml -100 ml medications Current Medications Medications Dose Ordered Sig/Sara Route Start Time Stop Time Status Last Admin Dose Admin Acetaminophen/ Hydrocodone Bitart 1 tab Q4HP PRN PO 07/02/24 17:00 07/05/24 11:12 1 TAB Ondansetron HCl 4 mg Q4HP PRN IV 07/02/24 17:00 Docusate Sodium 100 mg BIDPRN PRN PO 07/02/24 17:00 Acetaminophen 650 mg Q6HP PRN PO 07/02/24 17:00 Nitroglycerin 0.4 mg Q5MINP PRN SL 07/02/24 17:00 Morphine Sulfate 2 mg Q30M PRN IV 07/02/24 17:00 Amiodarone HCl 200 mg BID PO 07/02/24 22:00 07/06/24 08:37 200 MG Ferrous Sulfate 325 mg DAILY PO 07/03/24 10:00 07/06/24 08:29 325 MG Levothyroxine Sodium 88 mcg QAM PO 07/03/24 07:00 07/06/24 06:29 88 MCG Metoprolol Succinate 50 mg DAILY PO 07/03/24 10:00 07/06/24 08:36 50 MG Pantoprazole Sodium 40 mg DAILY PO 07/03/24 10:00 07/06/24 08:49 40 MG Sucralfate 1 gm BID PO 07/02/24 22:00 07/06/24 08:29 1 GM Furosemide 40 mg BIDD IV 07/02/24 18:00 07/05/24 17:36 40 MG Ceftriaxone Sodium 50 ml @ 100 mls/hr DAILY IV 07/03/24 10:00 07/06/24 08:37 100 MLS/HR Vancomycin HCl 0 ml @ 0 mls/hr UD IV 07/03/24 08:15 Vancomycin HCl 200 ml @ 200 mls/hr DAILY@1200 IV 07/04/24 12:00 07/06/24 12:30 200 MLS/HR Apixaban 5 mg BIDWM PO 07/04/24 18:00 07/06/24 08:49 5 MG objective Comfortable in bed without distress. Heart regular rate and rhythm S1 plus S2. Rate controlled. Lungs fair air movement without wheezing. Abdomen soft positive bowel sounds. Extremities positive edema in the lower extremities with erythema around the ankles extending up to the calf region both legs. Positive distal pedal pulses laboratory and microbiology Laboratory Tests 07/04/24 06:48 Test 07/06/24 06:19 Range/Units Serum Glucose Pending Assessment/Plan She is clinically stable. Heart rate in the 60s paced rhythm. Leg swelling is slightly improved so is erythema in the leg slightly improved. Continue current IV diuretics and IV antibiotics as she is on. We will order ultrasound of the legs to rule out DVT. Encouraged physical therapy. Continue oral fluid restriction. Otherwise further clinical management per clinical course. Discussed with the patient's nurse regarding care plan at bedside. Problems(with codes): (1) Acute exacerbation of CHF (congestive heart failure) (2) Localized swelling of both lower legs (3) Atrial fibrillation with RVR (4) Weakness Plan discussed with: Other KITA OTERO MD Jul 06, 2024 12:59
[2024-07-06 13:12] LABS: Chloride 111 mmol/L (98-107); Potassium 3.6 mmol/L (3.5-5.1); Sodium 144 mmol/L (136-145)
[2024-07-06 13:13] LABS: Anion Gap 11 (5-15); Calcium 8.7 mg/dL (8.7-10.4); Carbon Dioxide 22 mmol/L (20-31)
[2024-07-06 13:18] LABS: BUN/Creatinine Ratio 15.9 (10.0-20.0); Blood Urea Nitrogen 18 mg/dL (9-23); Glucose 106 mg/dL (74-106)
--- NOTE | 2024-07-06 14:23 | DVH ---
BILATERAL LOWER EXTREMITY VENOUS DOPPLER CLINICAL HISTORY: rule out dvt Technique: Duplex Doppler evaluation of the deep venous systems of both lower extremities from the co mmon femoral veins to the popliteal veins including color Doppler and spectral/pulsed waveform analys is was performed. COMPARISON: None FINDINGS: The right and left common femoral, superficial femoral, popliteal, posterior tibial and peroneal vein s appear patent with normal augmentation, phasicity, compressibility and color-flow. IMPRESSION: 1. There is no sonographic evidence for DVT in the lower extremities. HS:Y
[2024-07-07] VITALS (8 sets, daily range): BP systolic 107–126; BP diastolic 39–79; PULSE 55–61; RESP 15–20; TEMP 97.3–98.2; O2SAT 94–98
[2024-07-07 07:16] LABS: Basophils # (auto) 0.1 10 ^3/uL (0-0.2); Hemoglobin 7.9 g/dL (12.2-16.2); Monocytes # (auto) 0.5 10 ^3/uL (0-1.3); White Blood Cell 5.1 10^3/uL (4.4-10.8)
[2024-07-07 07:18] LABS: Basophils % (auto) 1.1 % (0.0-2.0); Eosinophils # (auto) 0.6 10 ^3/uL (0-0.8); Eosinophils % (auto) 11.4 % (0.0-7.0); Hematocrit 25.2 % (36.0-46.0); Lymphocytes # (auto) 1.5 10 ^3/uL (0.4-5.4); Lymphocytes % (auto) 28.9 % (10.0-50.0); Mean Corpuscular Hemoglobin 24.3 pg (28.0-32.0); Mean Corpuscular Hgb Conc. 31.6 g/dL (32.0-36.0); Monocytes % (auto) 10.5 % (0.0-12.0); Neutrophils # (auto) 2.4 10 ^3/uL (1.6-8.6); Neutrophils % (auto) 48.1 % (37.0-80.0); Platelet Count (auto) 162 10^3/uL (140-450); Red Blood Cells 3.27 10^6/uL (4.0-5.20); Red Cell Distribution Width 31.9 % (11.8-14.3)
[2024-07-07 07:23] LABS: Chloride 110 mmol/L (98-107); Potassium 3.5 mmol/L (3.5-5.1); Sodium 144 mmol/L (136-145)
[2024-07-07 07:24] LABS: Anion Gap 9 (5-15); Carbon Dioxide 25 mmol/L (20-31)
[2024-07-07 07:25] LABS: Calcium 8.9 mg/dL (8.7-10.4)
[2024-07-07 07:29] LABS: BUN/Creatinine Ratio 14.6 (10.0-20.0); Blood Urea Nitrogen 15 mg/dL (9-23); Glucose 106 mg/dL (74-106)
[2024-07-07 08:10] LABS: Anisocytosis Marked; Hypochromia Slight
[2024-07-07 08:11] LABS: Platelet Estimate Adequate
--- NOTE | 2024-07-07 10:03 | DVHINCON2 ---
Date of service: Jul 07, 2024 History of Present Illness Patient is a 74-year-old female presents to the hospital with a chief complaint of bilateral leg swelling, pain, redness and shortness of breath for the past 1 week. Patient reports unprovoked onset of symptoms a week ago that has been progressively worsening since. She denies any fevers, chills or chest pain. 07/02, Chest x-ray: Questionable mild interstitial pulmonary edema. Past Medical History Patient's past medical history is significant for AFIB w/Eliquis use, anemia, CHF, fibromyalgia, gastritis, GERD, HLD, HTN, and hypothyroidism Family History: Cardiovascular disease G8 MOTHER Diabetes mellitus G8 MOTHER Hypertension G8 MOTHER Allergies: Coded Allergies: NO KNOWN ALLERGIES (Unverified , 07/30/22) Home Meds Active Scripts Ferrous Sulfate (FERROUS SULFATE) 325 Mg Tb, 1 TAB PO DAILY, #30 TAB 3 Refills Prov:MERCEDEZ GUADARRAMA MD 06/05/24 Pantoprazole Sodium Sesquihydr (Protonix) 40 Mg Tab, 40 MG PO DAILY, #30 TAB Prov:MERCEDEZ GUADARRAMA MD 06/05/24 Amiodarone Hcl (Amiodarone Hcl) 200 Mg Tab, 200 MG PO BID, #60 TAB Prov:MERCEDEZ GUADARRAMA MD 01/06/24 Hydrocodone-Acetaminophen (Hydrocodone Bitartrate/AC 5-325 mg) 1 Tab Tab, 1 TAB PO Q8HPRN PRN, #14 TAB Prov:MERCEDEZ GUADARRAMA MD 01/06/24 Sucralfate (CARAFATE SUSP) 1 Gm/10 Ml Ss, 10 ML PO BID for 30 Days, #600 ML 1 Refill Prov:MERCEDEZ GUADARRAMA MD 01/06/24 Reported Medications Metoprolol Succinate (Metoprolol Succinate Er) 50 Mg Tab, 1 TAB PO DAILY, #30 TAB 5 Refills 01/03/24 Levothyroxine Sodium (Synthroid) 88 Mcg Tab, 1 TAB PO DAILY, #30 TAB 5 Refills 01/03/24 Review of Systems General: No Fever, chills, night sweats or weight loss HEENT: No Sinus pain, headache, vision changes or sore throat Respiratory: No Cough, dyspnea, sputum production Cardiovascular: No Chest pain, palpitations or leg edema Gastrointestinal: No Nausea, vomiting, diarrhea, abdominal pain Genitourinary: No Dysuria, urinary frequency, hematuria, pelvic pain Skin: No Rashes, ulcers, abscesses, redness or swelling Musculoskeletal: Leg pain (bilateral leg swelling and pain) Neurologic: No Altered mental status, headaches or focal neurological deficits Psychiatric: No Anxiety, depression or confusion Vital Signs Vital Signs Date Time Temp Pulse Resp B/P (MAP) Pulse Ox O2 Delivery O2 Flow Rate FiO2 07/07/24 09:24 60 126/63 07/07/24 09:00 98.0 15 98 98.0 07/06/24 20:00 Room Air* 0 21 Physical Exam General Appeara: Well developed, Well nourished, Normal Appearance Head Exam: Normal inspection Neck Exam: Normal inspection, Non-tender, Normal alignment Eye Exam: bilateral eye Normal inspection, bilateral eye PERRL, bilateral eye EOMI Ear Exam: bilateral ear Auricle normal Nasal Exam: Normal inspection Mouth: Normal Inspection Pulmonary/Respiratory: Normal inspection, Normal breath sounds, Chest non- tender, Lungs clear Cardiovascular/Chest: Normal inspection, Regular rate, Normal Rhythm Peripheral Pulses: 2+ dorsalis pedis (R), 2+ dorsalis pedis (L), 2+ Radial (R), 2+ Radial (L) Abdominal Exam: Normal bowel sounds, Soft Legs: bilateral leg pain, bilateral leg soft tissue tenderness, bilateral leg swelling [employer] Exam: Normal hearing, Normal speech, PERRL Neuro/Mental St: Alert, Oriented Appearance: Appropriate appearance, Appropriate insight Thoughts/Psych: Normal thought pattern Skin Exam: Normal inspection, Warm/dry, Pallor, Other (erythema bilateral lower extremity) Labs/Diagnostic Data Labs Test 07/07/24 06:59 07/06/24 06:19 07/05/24 14:25 07/04/24 06:48 Range/Units White Blood Count 5.1 4.4-10.8 10^3/uL Red Blood Count 3.27 L 4.0-5.20 10^6/uL Hemoglobin 7.9 L 12.2-16.2 g/dL Hematocrit 25.2 L 36.0-46.0 % Mean Corpuscular Volume 77.0 L 80.0-100.0 fL Mean Corpuscular Hemoglobin 24.3 L 28.0-32.0 pg Mean Corpuscular Hemoglobin Concent 31.6 L 32.0-36.0 g/dL Red Cell Distribution Width 31.9 H 11.8-14.3 % Platelet Count 162 140-450 10^3/uL Mean Platelet Volume 8.2 6.9-10.8 fL Neutrophils (%) (Auto) 48.1 37.0-80.0 % Lymphocytes (%) (Auto) 28.9 10.0-50.0 % Monocytes (%) (Auto) 10.5 0.0-12.0 % Eosinophils (%) (Auto) 11.4 H 0.0-7.0 % Basophils (%) (Auto) 1.1 0.0-2.0 % Neutrophils # (Auto) 2.4 1.6-8.6 10 ^3/uL Lymphocytes # (Auto) 1.5 0.4-5.4 10 ^3/uL Monocytes # (Auto) 0.5 0-1.3 10 ^3/uL Eosinophils # (Auto) 0.6 0-0.8 10 ^3/uL Basophils # (Auto) 0.1 0-0.2 10 ^3/uL Nucleated Red Blood Cells 0.0 % Platelet Estimate Adequate Hypochromasia (manual) Slight Anisocytosis (manual) Marked Microcytosis Slight Sodium Level 144 136-145 mmol/L Potassium Level 3.5 3.5-5.1 mmol/L Chloride Level 110 H 98-107 mmol/L Carbon Dioxide Level 25 20-31 mmol/L Anion Gap 9 5-15 Blood Urea Nitrogen 15 9-23 mg/dL Creatinine 1.03 H 0.550-1.02 mg/dL Glomerular Filtration Rate Calc 57 >90 mL/min BUN/Creatinine Ratio 14.6 10.0-20.0 Serum Glucose 106 74-106 mg/dL Calcium Level 8.9 8.7-10.4 mg/dL Magnesium Level 2.0 1.6-2.6 mg/dL Albumin 3.4 3.2-4.8 g/dL Ovalocytes Few Random Vancomycin Level 10.6 H 5-10 ug/mL Test 07/02/24 16:03 07/02/24 15:19 07/02/24 13:52 Range/Units Urine Color Light-yellow Yellow Urine Clarity Clear Clear Urine pH 5.5 5.0-9.0 Urine Specific [place] 1.010 1.001-1.035 Urine Protein Negative Negative Urine Ketones Negative Negative Urine Blood Negative Negative /uL Urine Nitrite Negative Negative Urine Bilirubin Negative Negative Urine Urobilinogen Normal Negative mg/dL Urine Leukocyte Esterase 1+ Negative /uL Urine RBC 1 0 - 4 /hpf Urine WBC 12 0 - 5 /hpf Urine Squamous Epithelial Cells Few <5 /hpf Urine Bacteria Few H None Seen /hpf Urine Hyaline Casts Few 0 - 2 /lpf Urine Glucose Normal Normal mg/dL Erythrocyte Sedimentation Rate 17 0-20 mm/hr Troponin I High Sensitivity 11 </=34 ng/L [place] Cells Few B-Type Natriuretic Peptide 519.71 0-100 pg/mL Microbiology Date/Time Source Procedure Growth Status 07/02/24 16:03 Voided Urine Urine Culture - Final Complete Assessment Patient is a 74-year-old female presents to the hospital with bilateral lower extremity swelling. Acute CHF exacerbation Bilateral lower extremity swelling/cellulitis Urinary tract infection Anemia Recommendations: IV antibiotic - Ceftriaxone, Vancomycin Urine culture: Pending Thank you for consult. FRANSISCO HERNANDEZ MD Jul 07, 2024 10:03
--- NOTE | 2024-07-07 16:44 | DVHPN2 ---
Progress Note - Dictate Date Seen: Jul 07, 2024 Medical Necessity Reason Pt with a Central, PICC or Fol: No Subjective Lower extremity edema erythema significantly improved today. Patient is encouraged activity and ambulation. vital signs Vital Sign Date Time Temp Pulse Resp B/P (MAP) Pulse Ox O2 Delivery O2 Flow Rate FiO2 07/07/24 13:00 97.6 60 16 111/39 (63) 96 97.6 07/06/24 20:00 Room Air* 0 21 Total Intake and Output 07/06/24 07/06/24 07/07/24 15:00 23:00 07:00 Intake Total 250 ml 800 ml 480 ml Output Total 1100 ml 520 ml Balance 250 ml -300 ml -40 ml medications Current Medications Medications Dose Ordered Sig/Sara Route Start Time Stop Time Status Last Admin Dose Admin Acetaminophen/ Hydrocodone Bitart 1 tab Q4HP PRN PO 07/02/24 17:00 07/07/24 12:15 1 TAB Ondansetron HCl 4 mg Q4HP PRN IV 07/02/24 17:00 Docusate Sodium 100 mg BIDPRN PRN PO 07/02/24 17:00 Acetaminophen 650 mg Q6HP PRN PO 07/02/24 17:00 Nitroglycerin 0.4 mg Q5MINP PRN SL 07/02/24 17:00 Morphine Sulfate 2 mg Q30M PRN IV 07/02/24 17:00 Amiodarone HCl 200 mg BID PO 07/02/24 22:00 07/07/24 09:24 200 MG Ferrous Sulfate 325 mg DAILY PO 07/03/24 10:00 07/07/24 09:23 325 MG Levothyroxine Sodium 88 mcg QAM PO 07/03/24 07:00 07/07/24 06:00 88 MCG Metoprolol Succinate 50 mg DAILY PO 07/03/24 10:00 07/07/24 09:24 50 MG Pantoprazole Sodium 40 mg DAILY PO 07/03/24 10:00 07/07/24 09:24 40 MG Sucralfate 1 gm BID PO 07/02/24 22:00 07/07/24 09:24 1 GM Furosemide 40 mg BIDD IV 07/02/24 18:00 07/07/24 06:00 40 MG Ceftriaxone Sodium 50 ml @ 100 mls/hr DAILY IV 07/03/24 10:00 07/07/24 09:23 100 MLS/HR Vancomycin HCl 0 ml @ 0 mls/hr UD IV 07/03/24 08:15 Vancomycin HCl 200 ml @ 200 mls/hr DAILY@1200 IV 07/04/24 12:00 07/07/24 12:07 200 MLS/HR Apixaban 5 mg BIDWM PO 07/04/24 18:00 07/07/24 09:23 5 MG Potassium Chloride 20 meq BID PO 07/07/24 22:00 objective Comfortable in bed without distress. Heart sinus rhythm S1 plus S2. Lungs fair air movement. Abdomen soft positive bowel sounds. Extremities significantly improved erythema and edema in the lower extremities. Positive distal pedal pulses. laboratory and microbiology Laboratory Tests 07/07/24 06:59 Test 07/07/24 06:59 Range/Units Serum Glucose 106 74-106 mg/dL Assessment/Plan She is clinically stable. Encouraged activity and ambulation. Continue current antibiotics and diuresis. Follow clinical management per clinical course. Discussed with the patient's nurse regarding care plan. Problems(with codes): (1) Atrial fibrillation with RVR (2) Weakness (3) Localized swelling of both lower legs Plan discussed with: KITA Buckley MD Jul 07, 2024 16:44
[2024-07-07] MEDS: POTASSIUM CHL 20 Meq TABLET PO SCH (21:32)
[2024-07-08] VITALS (9 sets, daily range): BP systolic 104–122; BP diastolic 51–72; PULSE 60–62; RESP 15–20; TEMP 97.3–98.8; O2SAT 92–100
[2024-07-08 09:07] LABS: Basophils # (auto) 0 10 ^3/uL (0-0.2); Eosinophils # (auto) 0.6 10 ^3/uL (0-0.8); Monocytes # (auto) 0.5 10 ^3/uL (0-1.3); Neutrophils # (auto) 2.4 10 ^3/uL (1.6-8.6)
[2024-07-08 09:08] LABS: Basophils % (auto) 0.7 % (0.0-2.0); Eosinophils % (auto) 11.3 % (0.0-7.0); Hematocrit 29.9 % (36.0-46.0); Mean Corpuscular Hemoglobin 23.7 pg (28.0-32.0); Mean Corpuscular Hgb Conc. 30.2 g/dL (32.0-36.0); Mean Corpuscular Volume 78.2 fL (80.0-100.0); Monocytes % (auto) 9.3 % (0.0-12.0); Neutrophils % (auto) 42.7 % (37.0-80.0); Nucleated Red Blood Cells % 0.1 %; Platelet Count (auto) 191 10^3/uL (140-450); Red Blood Cells 3.83 10^6/uL (4.0-5.20); Red Cell Distribution Width 32.5 % (11.8-14.3); White Blood Cell 5.6 10^3/uL (4.4-10.8)
--- NOTE | 2024-07-08 11:49 | DVHPN2 ---
Progress Note - Dictate Date Seen: Jul 08, 2024 Medical Necessity Reason Pt with a Central, PICC or Fol: No Subjective Patient is seen and evaluated. Lower extremity edema erythema significantly improved today. Patient is encouraged activity and ambulation. vital signs Vital Sign Date Time Temp Pulse Resp B/P (MAP) Pulse Ox O2 Delivery O2 Flow Rate FiO2 07/08/24 09:17 60 114/51 07/08/24 09:00 97.8 16 99 97.8 07/07/24 20:00 Room Air* 0 21 Total Intake and Output 07/07/24 07/07/24 07/08/24 15:00 23:00 07:00 Intake Total 250 ml 400 ml 320 ml Output Total 700 ml 800 ml Balance 250 ml -300 ml -480 ml medications Current Medications Medications Dose Ordered Sig/Sara Route Start Time Stop Time Status Last Admin Dose Admin Acetaminophen/ Hydrocodone Bitart 1 tab Q4HP PRN PO 07/02/24 17:00 07/08/24 09:19 1 TAB Ondansetron HCl 4 mg Q4HP PRN IV 07/02/24 17:00 Docusate Sodium 100 mg BIDPRN PRN PO 07/02/24 17:00 Acetaminophen 650 mg Q6HP PRN PO 07/02/24 17:00 Nitroglycerin 0.4 mg Q5MINP PRN SL 07/02/24 17:00 Morphine Sulfate 2 mg Q30M PRN IV 07/02/24 17:00 Amiodarone HCl 200 mg BID PO 07/02/24 22:00 07/08/24 09:18 200 MG Ferrous Sulfate 325 mg DAILY PO 07/03/24 10:00 07/08/24 09:16 325 MG Levothyroxine Sodium 88 mcg QAM PO 07/03/24 07:00 07/08/24 06:00 88 MCG Metoprolol Succinate 50 mg DAILY PO 07/03/24 10:00 07/08/24 09:17 50 MG Pantoprazole Sodium 40 mg DAILY PO 07/03/24 10:00 07/08/24 09:18 40 MG Sucralfate 1 gm BID PO 07/02/24 22:00 07/08/24 09:18 1 GM Furosemide 40 mg BIDD IV 07/02/24 18:00 07/08/24 05:58 40 MG Ceftriaxone Sodium 50 ml @ 100 mls/hr DAILY IV 07/03/24 10:00 07/08/24 09:18 100 MLS/HR Vancomycin HCl 0 ml @ 0 mls/hr UD IV 07/03/24 08:15 Vancomycin HCl 200 ml @ 200 mls/hr DAILY@1200 IV 07/04/24 12:00 07/07/24 12:07 200 MLS/HR Apixaban 5 mg BIDWM PO 07/04/24 18:00 07/08/24 09:15 5 MG Potassium Chloride 20 meq BID PO 07/07/24 22:00 07/08/24 09:15 20 MEQ laboratory and microbiology Laboratory Tests 07/08/24 08:16 07/07/24 06:59 Test 07/07/24 06:59 Range/Units Serum Glucose 106 74-106 mg/dL Assessment/Plan Patient is a 74-year-old female presents to the hospital with bilateral lower extremity swelling. Acute CHF exacerbation Bilateral lower extremity swelling/cellulitis Urinary tract infection Anemia Recommendations: IV antibiotic - Ceftriaxone, Vancomycin Urine culture: Pending Thank you for consult. FRANSISCO HERNANDEZ MD Jul 08, 2024 11:49
--- NOTE | 2024-07-08 12:49 | DVHPN2 ---
Progress Note - Dictate Date Seen: Jul 08, 2024 Medical Necessity Reason Pt with a Central, PICC or Fol: No Subjective Continued to feel better. Ambulating. Erythema and edema in the legs is improved. vital signs Vital Sign Date Time Temp Pulse Resp B/P (MAP) Pulse Ox O2 Delivery O2 Flow Rate FiO2 07/08/24 09:17 60 114/51 07/08/24 09:00 97.8 16 99 97.8 07/07/24 20:00 Room Air* 0 21 Total Intake and Output 07/07/24 07/07/24 07/08/24 15:00 23:00 07:00 Intake Total 250 ml 400 ml 320 ml Output Total 700 ml 800 ml Balance 250 ml -300 ml -480 ml medications Current Medications Medications Dose Ordered Sig/Sara Route Start Time Stop Time Status Last Admin Dose Admin Acetaminophen/ Hydrocodone Bitart 1 tab Q4HP PRN PO 07/02/24 17:00 07/08/24 09:19 1 TAB Ondansetron HCl 4 mg Q4HP PRN IV 07/02/24 17:00 Docusate Sodium 100 mg BIDPRN PRN PO 07/02/24 17:00 Acetaminophen 650 mg Q6HP PRN PO 07/02/24 17:00 Nitroglycerin 0.4 mg Q5MINP PRN SL 07/02/24 17:00 Morphine Sulfate 2 mg Q30M PRN IV 07/02/24 17:00 Amiodarone HCl 200 mg BID PO 07/02/24 22:00 07/08/24 09:18 200 MG Ferrous Sulfate 325 mg DAILY PO 07/03/24 10:00 07/08/24 09:16 325 MG Levothyroxine Sodium 88 mcg QAM PO 07/03/24 07:00 07/08/24 06:00 88 MCG Metoprolol Succinate 50 mg DAILY PO 07/03/24 10:00 07/08/24 09:17 50 MG Pantoprazole Sodium 40 mg DAILY PO 07/03/24 10:00 07/08/24 09:18 40 MG Sucralfate 1 gm BID PO 07/02/24 22:00 07/08/24 09:18 1 GM Furosemide 40 mg BIDD IV 07/02/24 18:00 07/08/24 05:58 40 MG Ceftriaxone Sodium 50 ml @ 100 mls/hr DAILY IV 07/03/24 10:00 07/08/24 09:18 100 MLS/HR Vancomycin HCl 0 ml @ 0 mls/hr UD IV 07/03/24 08:15 Vancomycin HCl 200 ml @ 200 mls/hr DAILY@1200 IV 07/04/24 12:00 07/08/24 12:27 200 MLS/HR Apixaban 5 mg BIDWM PO 07/04/24 18:00 07/08/24 09:15 5 MG Potassium Chloride 20 meq BID PO 07/07/24 22:00 07/08/24 09:15 20 MEQ objective Comfortable in bed without distress. Heart sinus rhythm S1 plus S2. Lungs fair air movement. Abdomen soft positive bowel sounds. Extremities significantly improved erythema and edema in the lower extremities. Positive distal pedal pulses. laboratory and microbiology Laboratory Tests 07/08/24 08:16 07/07/24 06:59 Test 07/07/24 06:59 Range/Units Serum Glucose 106 74-106 mg/dL Assessment/Plan We will change potassium and Lasix to oral. Continue twice a day Lasix and oral fluid restriction. Discussed with the patient. If she remains stable discharge home tomorrow. Plan discussed with: Other KITA OTERO MD Jul 08, 2024 12:49
[2024-07-08] MEDS: FUROSEMIDE 40 MG TAB PO SCH (18:51)
[2024-07-08] MEDS: POTASSIUM CHLORIDE 8 MEQ TAB PO SCH (21:06)
[2024-07-09 01:00] VITALS: BP 122/84; PULSE 60; RESP 20; TEMP 97.7; O2SAT 96
[2024-07-09 05:00] VITALS: BP 91/47; PULSE 62; RESP 18; TEMP 97.8; O2SAT 93
[2024-07-09 05:37] LABS: Anion Gap 8 (5-15); Carbon Dioxide 25 mmol/L (20-31); Chloride 109 mmol/L (98-107); Sodium 142 mmol/L (136-145)
[2024-07-09 05:38] LABS: Calcium 8.9 mg/dL (8.7-10.4)
[2024-07-09 05:43] LABS: Blood Urea Nitrogen 19 mg/dL (9-23); Glucose 97 mg/dL (74-106)
[2024-07-09 08:00] VITALS: PULSE 60
[2024-07-09 08:59] VITALS: BP 117/55; PULSE 60; RESP 17; TEMP 97.8; O2SAT 100
[2024-07-09] MEDS ORDERED: CEFD300C2 PO (12:02)
[2024-07-09] MEDS ORDERED: APIX5TAB PO (12:02)
[2024-07-09] MEDS ORDERED: BACDST PO (12:02)
[2024-07-09] MEDS ORDERED: SACC1CAP3 PO (12:02)
--- NOTE | 2024-07-09 12:05 | DVHDS2 ---
Discharge Summary Date of Admission Jul 02, 2024 at 16:52 Date of Discharge: Jul 09, 2024 Labs/Diagnostic Data: Laboratory Results Test 07/09/24 11:05 07/09/24 04:38 07/08/24 08:16 07/07/24 11:40 Random Vancomycin Level 26.3 ug/mL (5-10) Sodium Level 142 mmol/L (136-145) Potassium Level 4.0 mmol/L (3.5-5.1) Chloride Level 109 mmol/L (98-107) Carbon Dioxide Level 25 mmol/L (20-31) Anion Gap 8 (5-15) Blood Urea Nitrogen 19 mg/dL (9-23) Creatinine 1.27 mg/dL (0.550-1.02) Glomerular Filtration Rate Calc 45 mL/min (>90) BUN/Creatinine Ratio 15.0 (10.0-20.0) Serum Glucose 97 mg/dL (74-106) Calcium Level 8.9 mg/dL (8.7-10.4) White Blood Count 5.6 10^3/uL (4.4-10.8) Red Blood Count 3.83 10^6/uL (4.0-5.20) Hemoglobin 9.0 g/dL (12.2-16.2) Hematocrit 29.9 % (36.0-46.0) Mean Corpuscular Volume 78.2 fL (80.0-100.0) Mean Corpuscular Hemoglobin 23.7 pg (28.0-32.0) Mean Corpuscular Hemoglobin Concent 30.2 g/dL (32.0-36.0) Red Cell Distribution Width 32.5 % (11.8-14.3) Platelet Count 191 10^3/uL (140-450) Mean Platelet Volume 8.3 fL (6.9-10.8) Neutrophils (%) (Auto) 42.7 % (37.0-80.0) Lymphocytes (%) (Auto) 36.0 % (10.0-50.0) Monocytes (%) (Auto) 9.3 % (0.0-12.0) Eosinophils (%) (Auto) 11.3 % (0.0-7.0) Basophils (%) (Auto) 0.7 % (0.0-2.0) Neutrophils # (Auto) 2.4 10 ^3/uL (1.6-8.6) Lymphocytes # (Auto) 2.0 10 ^3/uL (0.4-5.4) Monocytes # (Auto) 0.5 10 ^3/uL (0-1.3) Eosinophils # (Auto) 0.6 10 ^3/uL (0-0.8) Basophils # (Auto) 0 10 ^3/uL (0-0.2) Nucleated Red Blood Cells 0.1 % Vancomycin Level Trough 18.1 ug/mL (5-10) Test 07/07/24 06:59 07/06/24 06:19 07/05/24 14:25 07/04/24 06:48 Platelet Estimate Adequate Hypochromasia (manual) Slight Anisocytosis (manual) Marked Microcytosis Slight Magnesium Level 2.0 mg/dL (1.6-2.6) Albumin 3.4 g/dL (3.2-4.8) Ovalocytes Few Test 07/02/24 16:03 07/02/24 15:19 07/02/24 13:52 Urine Color Light-yellow (Yellow) Urine Clarity Clear (Clear) Urine pH 5.5 (5.0-9.0) Urine Specific [place] 1.010 (1.001-1.035) Urine Protein Negative (Negative) Urine Ketones Negative (Negative) Urine Blood Negative /uL (Negative) Urine Nitrite Negative (Negative) Urine Bilirubin Negative (Negative) Urine Urobilinogen Normal mg/dL (Negative) Urine Leukocyte Esterase 1+ /uL (Negative) Urine RBC 1 /hpf (0 - 4) Urine WBC 12 /hpf (0 - 5) Urine Squamous Epithelial Cells Few /hpf (<5) Urine Bacteria Few /hpf (None Seen) Urine Hyaline Casts Few /lpf (0 - 2) Urine Glucose Normal mg/dL (Normal) Erythrocyte Sedimentation Rate 17 mm/hr (0-20) Troponin I High Sensitivity 11 ng/L (</=34) [place] Cells Few B-Type Natriuretic Peptide 519.71 pg/mL (0-100) Other Laboratory Tests 07/09/24 04:38 07/08/24 08:16 Brief Hx & Hospital Course: Mrs. Laxmi Chavis is a 74 year old female with a history of AFIB w/Eliquis use, anemia, CHF, fibromyalgia, gastritis, GERD, HLD, HTN, and hypothyroidism, presents with a chief complaint bilateral leg swelling, pain, and redness and shortness of breath for 1 week. Patient reports unprovoked onset of symptoms a week ago that has been progressively worsening since. Patient denies fevers, chills, chest pain. She is admitted and noted to be in heart failure with the leg edema diastolic dysfunction as well as cellulitis of the legs. Patient is started on IV diuretics Lasix. Patient is evaluated by Infectious Disease and started on empiric IV antibiotics. Patient made a slow but steady recovery and eventually her leg swelling has significantly improved and almost resolved. Leg erythema edema has also improved and almost resolved. Patient counseled regarding oral fluid restriction and elevating her legs as much as possible. Also advised to increase her Lasix to twice a day at home from once a day to improve her swelling. Otherwise given overall patient is clinically stable able to ambulate without any pain or significant distress it is felt she can be safely discharged home. Patient has verbalized understanding over hospital diagnosis, treatment she received, discharge medications, discharge instructions and agree with the discharge follow-up plan of care. Operations or Procedures EXAM: Two-dimensional and M-mode echocardiogram with Doppler and color Doppler. Blood Pressure: 106/42 mmHg INDICATION CHF exacerbation RISK FACTORS Height: 5'4", Weight: 172 DIMENSIONS LVDd 4.4 (3.8-5.7cm) LA (2D) 6.2 (1.9-4.0cm) Aortic Root 3.3 (2.0- 3.7cm) LVDs 2.9 (2.5-4.0cm) LA (MM) (1.9-4.0cm) Aortic Cusp Exc 1.7 (1.5- 2.0cm) EF (%) 60.0 (55-70%) Rt. Atrium 4.9 (1.9-4.0cm) Asc. Aorta cm IVSd 1.3 (0.7-1.1cm) RV (D) (1.8-2.4cm) PWd 1.3 (0.7-1.1cm) Mitral Valve Mitral Mitral Stenosis E wave 1.23m/s MV Mean GR. mmHg A wave 0.38m/s MV Peak GR. mmHg E/A ratio 3.2 2D MVA cm2 DECEL Time 153ms PRESS 1/2 Time ms Aortic Valve Aortic Valve Aortic Stenosis V1 1.34m/s AO Mean GR. 7mmHg V2 2.00m/s AO Peak GR. 16mmHg LVOT Diameter 1.8 (1.8-2.4cm) Doppler LUCY 1.70cm2 Pulmonic Valve V2 1.40m/s Tricuspid Valve TR Velocity 2.93m/s RVSP 37mmHg Other Information Technically limited study due to body habitus. Conclusion lvef 60% by visual estimate mild LVH severe dilated left atrium moderate MAC noted SIGNED BY: NEY PEREIRA MD SIGNED DATE/TIME: 07/04/24 3804 Condition at Discharge: Stable Final Diagnosis/Problems List LE cellulits and edema, afib Discharge Disposition: Home Discharge Instruct/Medications Diet: Consistent carbohydrate, Cardiac 2g Na,low cholest Activity: No Restrictions, As Tolerated Follow Up/Referral: PCP next week and Infection doctor 2 weeks Medications: take lasix twice a day and continue other medications as prescribed New Medications: Apixaban Base (Eliquis) 5 Mg Tab 5 MG PO BID, #90 TAB Cefdinir (Cefdinir) 300 Mg Cap 1 CAP PO BID, #20 CAP Sulfamethoxazole W/Trimethopri (Bactrim Ds Tablet) 1 Tab Tb 1 TAB PO BID, #10 TAB Yeast (S. Boulardii)(S. Cerevi (Probiotic) 250 Mg Cap 250 MG PO BID, #20 CAP Continued Medications: Amiodarone Hcl (Amiodarone Hcl) 200 Mg Tab 200 MG PO BID, #60 TAB Ferrous Sulfate (Ferrous Sulfate) 325 Mg Tb 1 TAB PO DAILY, #30 TAB 3 Refills Hydrocodone-Acetaminophen (Hydrocodone Bitartrate/AC 5-325 mg) 1 Tab Tab 1 TAB PO Q8HPRN PRN, #14 TAB Levothyroxine Sodium (Synthroid) 88 Mcg Tab 1 TAB PO DAILY, #30 TAB 5 Refills Metoprolol Succinate (Metoprolol Succinate Er) 50 Mg Tab 1 TAB PO DAILY, #30 TAB 5 Refills Pantoprazole Sodium Sesquihydr (Protonix) 40 Mg Tab 40 MG PO DAILY, #30 TAB Sucralfate (Carafate Susp) 1 Gm/10 Ml Ss 10 ML PO BID for 30 Days, #600 ML 1 Refill Discharge Statement: "Patient was advised to return to the ER or call 911 if any headaches, dizziness, shortness of breath, chest pain, abdominal pain, bleeding, fevers, or worsening of medical condition. Patient was counseled about treatment plan, medications, possible side effects, patientverbalized understanding. All questions were answered to the best of my ability. This discharge took greater then 30 minutes in planning, reviewing documentation, counseling the patient, and discussing with other team members." ASSESSMENT ASSESSMENT Assessment LE cellulits and edema, afib KITA OTERO MD Jul 09, 2024 12:05
--- NOTE | 2024-07-09 12:37 | DVHPN2 ---
Progress Note - Dictate Date Seen: Jul 09, 2024 Medical Necessity Reason Pt with a Central, PICC or Fol: No Subjective Patient is seen and evaluated. Continued to feel better. Ambulating. Erythema and edema in the legs is improved. Patient is encouraged activity and ambulation. Plan for discharge vital signs Vital Sign Date Time Temp Pulse Resp B/P (MAP) Pulse Ox O2 Delivery O2 Flow Rate FiO2 07/09/24 09:30 60 117/55 07/09/24 08:59 97.8 17 100 97.8 07/09/24 08:10 Room Air* 0 21 Total Intake and Output 07/08/24 07/08/24 07/09/24 15:00 23:00 07:00 Intake Total 250 ml 220 ml 200 ml Output Total 700 ml 400 ml Balance 250 ml -480 ml -200 ml medications Current Medications Medications Dose Ordered Sig/Sara Route Start Time Stop Time Status Last Admin Dose Admin Acetaminophen/ Hydrocodone Bitart 1 tab Q4HP PRN PO 07/02/24 17:00 07/09/24 09:29 1 TAB Ondansetron HCl 4 mg Q4HP PRN IV 07/02/24 17:00 Docusate Sodium 100 mg BIDPRN PRN PO 07/02/24 17:00 Acetaminophen 650 mg Q6HP PRN PO 07/02/24 17:00 Nitroglycerin 0.4 mg Q5MINP PRN SL 07/02/24 17:00 Morphine Sulfate 2 mg Q30M PRN IV 07/02/24 17:00 Amiodarone HCl 200 mg BID PO 07/02/24 22:00 07/09/24 09:31 200 MG Ferrous Sulfate 325 mg DAILY PO 07/03/24 10:00 07/09/24 09:30 325 MG Levothyroxine Sodium 88 mcg QAM PO 07/03/24 07:00 07/09/24 06:13 88 MCG Metoprolol Succinate 50 mg DAILY PO 07/03/24 10:00 07/09/24 09:30 50 MG Pantoprazole Sodium 40 mg DAILY PO 07/03/24 10:00 07/09/24 09:29 40 MG Sucralfate 1 gm BID PO 07/02/24 22:00 07/09/24 09:28 1 GM Ceftriaxone Sodium 50 ml @ 100 mls/hr DAILY IV 07/03/24 10:00 07/09/24 09:31 100 MLS/HR Vancomycin HCl 0 ml @ 0 mls/hr UD IV 07/03/24 08:15 Apixaban 5 mg BIDWM PO 07/04/24 18:00 07/09/24 09:28 5 MG Furosemide 40 mg BIDD PO 07/08/24 18:00 07/08/24 18:51 40 MG Potassium Chloride 8 meq BID PO 07/08/24 22:00 07/09/24 09:30 8 MEQ laboratory and microbiology Laboratory Tests 07/09/24 04:38 07/08/24 08:16 Test 07/09/24 04:38 Range/Units Serum Glucose 97 74-106 mg/dL Assessment/Plan Patient is a 74-year-old female presents to the hospital with bilateral lower extremity swelling. Acute CHF exacerbation Bilateral lower extremity swelling/cellulitis Urinary tract infection Anemia Recommendations: IV antibiotic - Ceftriaxone, Vancomycin Urine culture: Pending Thank you for consult. FRANSISCO HERNANDEZ MD Jul 09, 2024 12:37
[2024-07-09 13:00] VITALS: BP 121/49; PULSE 60; RESP 17; TEMP 98.2; O2SAT 99
== END 2024-07-09 14:57 | disposition home or self-care (01) | DRG 602 ==
LOC: ER 12:09 → TELE 16:52 → TELE-EAST 16:55
PROVIDERS: ADMIT Internal Medicine; ATTEND Hospitalist
DX: L03.116 Cellulitis of left lower limb (principal); I50.33 Acute on chronic diastolic (congestive) heart failure; N17.0 Acute kidney failure with tubular necrosis; I48.20 Chronic atrial fibrillation, unspecified; N39.0 Urinary tract infection, site not specified; I11.0 Hypertensive heart disease with heart failure; L03.115 Cellulitis of right lower limb; D64.9 Anemia, unspecified; E66.9 Obesity, unspecified; K27.9 Peptic ulcer, site unspecified, unspecified as acute or chronic, without hemorrhage or perforation; K21.9 Gastro-esophageal reflux disease without esophagitis; E78.5 Hyperlipidemia, unspecified; E03.9 Hypothyroidism, unspecified; Z79.01 Long term (current) use of anticoagulants; Z90.710 Acquired absence of both cervix and uterus; Z90.49 Acquired absence of other specified parts of digestive tract; Z82.49 Family history of ischemic heart disease and other diseases of the circulatory system; Z83.3 Family history of diabetes mellitus; Z87.891 Personal history of nicotine dependence; Z79.899 Other long term (current) drug therapy; Z95.0 Presence of cardiac pacemaker; Z68.29 Body mass index [BMI] 29.0-29.9, adult
CPT/HCPCS: 36415; 71046; 80048; 80202; 81001; 82040; 82565; 83735; 83880; 84484; 85025; 85652; 87086; 93306; 93970; 97110; 97116; 97163; 97530; G0378

== ENCOUNTER 2024-08-18 11:25 | Emergency (ER) | payer OTHER, MEDICAID ==
[~2024-08-18] VITALS: Ht 162.6 cm; Wt 66.0 kg
[~2024-08-18 11:25] MED LIST changes: +APIX5TAB PO; +BACDST PO; +CEFD300C2 PO; +SACC1CAP3 PO
--- NOTE | 2024-08-18 12:32 | ED.PDOC ---
Musculoskeletal HPI Comments 74Y F presents to ED for chief complaint LLE pain x6days. Pt states she fell asleep on rocking chair with her left leg hanging and woke up with the pain. Pt has now developed worse pain and limited ROM. Pt usually ambulates well with walker but is now having trouble. Pt takes [place] at home and last took one pill this morning. Chief Complaint: Lower Extremity Time Seen by MD: 12:15 Primary Care Provider: MAAME Rod Notes: Nurses Notes, Medications, Allergies Allergies: Coded Allergies: NO KNOWN ALLERGIES (Unverified , 07/30/22) Home Meds Active Scripts Sulfamethoxazole W/Trimethopri (Bactrim Ds Tablet) 1 Tab Tb, 1 TAB PO BID, #10 TAB Prov:KITA OTERO MD 07/09/24 Yeast (S. Boulardii)(S. Cerevi (Probiotic) 250 Mg Cap, 250 MG PO BID, #20 CAP Prov:KITA OTERO MD 07/09/24 Cefdinir (Cefdinir) 300 Mg Cap, 1 CAP PO BID, #20 CAP Prov:KITA OTERO MD 07/09/24 Apixaban Base (ELIQUIS) 5 Mg Tab, 5 MG PO BID, #90 TAB Prov:KITA OTERO MD 07/09/24 Ferrous Sulfate (FERROUS SULFATE) 325 Mg Tb, 1 TAB PO DAILY, #30 TAB 3 Refills Prov:MERCEDEZ GUADARRAMA MD 06/05/24 Pantoprazole Sodium Sesquihydr (Protonix) 40 Mg Tab, 40 MG PO DAILY, #30 TAB Prov:MERCEDEZ GUADARRAMA MD 06/05/24 Amiodarone Hcl (Amiodarone Hcl) 200 Mg Tab, 200 MG PO BID, #60 TAB Prov:MERCEDEZ GUADARRAMA MD 01/06/24 Hydrocodone-Acetaminophen (Hydrocodone Bitartrate/AC 5-325 mg) 1 Tab Tab, 1 TAB PO Q8HPRN PRN, #14 TAB Prov:MERCEDEZ GUADARRAMA MD 01/06/24 Sucralfate (CARAFATE SUSP) 1 Gm/10 Ml Ss, 10 ML PO BID for 30 Days, #600 ML 1 Refill Prov:MERCEDEZ GUADARRAMA MD 01/06/24 Reported Medications Metoprolol Succinate (Metoprolol Succinate Er) 50 Mg Tab, 1 TAB PO DAILY, #30 TAB 5 Refills 01/03/24 Levothyroxine Sodium (Synthroid) 88 Mcg Tab, 1 TAB PO DAILY, #30 TAB 5 Refills 01/03/24 Information Source: Patient, Spouse Mode of Arrival: Wheelchair Location: Left Extremity Location: Hip, Knee, Leg Timing: Days Severity: Moderate Able to Move Extremity: Yes Bear Weight: No Pain: Moderate Mechanism: Unknown Circumstances: Other Onset of Symptoms: Spontaneous Symptoms: Pain DVT Risk Factors: NONE Last Tetanus: UTD Associated signs and symptoms: Leg pain (left) Past Medical History PAST MEDICAL HISTORY: AFIB, Anemia, CHF, GERD, High Lipids, HTN, Thyroid Surgical History: Cholecystectomy, Hysterectomy 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 History: Denies all 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 Hx Family History Family History: No family hx of Cancer, No family hx of Heart ramona, No family hx ofKidney ramona, No family hx of Liver ramona, No family hx of Lung ramona, No family hx of Stroke, Family hx of DM, Family hx of HTN Social History Smoker: Non-Smoker Alcohol: Denies ETOH Use Drugs: Denies Drug Use Lives In: Home Constitutional: denies: chills, diaphoresis, fatigue, fever, malaise, sweats, weakness, others EENTM: denies: blurred vision, double vision, ear bleeding, ear discharge, ear drainage, ear pain, ear ringing, eye pain, eye redness, hearing loss, mouth pain, mouth swelling, nasal discharge, nose bleeding, nose congestion, nose pain, photophobia, tearing, throat pain, throat swelling, voice changes, others Respiratory: denies: cough, hemoptysis, orthopnea, SOB at rest, shortness of breath, SOB with excertion, stridor, wheezing, others Cardiovascular: denies: chest pain, dizzy spells, diaphoresis, Dyspnea on exertion, edema, irregular heart beat, left arm pain, lightheadedness, palpitations, PND, syncope, others Gastrointestinal: denies: abdomen distended, abdominal pain, blood streaked bowels, constipated, diarrhea, dysphagia, difficulty swallowing, hematemesis, melena, nausea, poor appetite, poor fluid intake, rectal bleeding, rectal pain, vomiting, others Genitourinary: denies: abnormal vagina bleeding, burning, dyspareunia, dysuria, flank pain, frequency, hematuria, incontinence, pain, , vagina discharge, urgency, others Neurological: denies: dizziness, fainting, headache, left sided numbness, left sided weakness, numbness, paresthesia, pre-existing deficit, right sided numbness, right sided weakness, seizure, speech problems, tingling, tremors, weakness, others Musculoskeletal: reports: joint pain (LT KNEE), others (LLE PAIN); denies: back pain, gout, joint swelling, muscle pain, muscle stiffness, neck pain Integumetry: denies: bruises, change in color, change in hair/nails, dryness, laceration, lesions, lumps, rash, wounds, others Allergic/Immunocompromised: denies: Difficulty Healing, Frequent Infections, Hives, Itching, others Hematologic/Lymphatic: denies: anemia, blood clots, easy bleeding, easy bruising, swollen glands, others Endocrine: denies: excessive hunger, excessive sweating, excessive thirst, excessive urination, flushing, intolerance to cold, intolerance to heat, unexplained weight gain, unexplained weight loss, others Psychiatric: denies: anxiety, bipolar disorder, depression, hopeless, panic disorder, schizophrenia, sleepless, suicidal, others All Other Systems: Reviewed and Negative Physical Exam General Appearance: No Apparent Distress, Normal HEENT: Normal ENT Inspection, Pharynx Normal, TMs Normal Neck: Full Range of Motion, Non-Tender, Normal, Normal Inspection Respiratory: Chest Non-Tender, Lungs Clear, No Accessory Muscle Use, No Respiratory Distress, Normal Breath Sounds Cardiovascular: No Edema, No JVD, No Murmur, No Gallop, Normal Peripheral Pulses, Regular Rate/Rhythm Breast Exam: Deferred Gastrointestinal: No Organomegaly, Non Tender, No Pulsatile Mass, Normal Bowel Sounds, Soft Genitalia: Deferred Pelvic: Deferred Rectal: Deferred Extremities: Decreased range of motion (LLE), No calf tenderness, Normal cap illary refill, No pedal edema, Tender (LLE) Musculoskeletal : Apperance: Normal Neurologic: Alert, console attendant II-XII nml as Tested, No Motor Deficits, Normal Affect, Normal Mood, No Sensory Deficits Cerebellar Function: NOT DONE Reflexes: NOT DONE Skin: Dry, Normal Color, Warm Lymphatic: No Adenopathy Was a procedure done? Was a procedure done?: No Differential Diagnosis EXT Differential Diagnosis: Fracture, Sprain, Contusion, Strain, Arthritis X-Ray, Labs, Meds, VS Vital Signs Date Time Temp Pulse Resp B/P (MAP) Pulse Ox O2 Delivery O2 Flow Rate FiO2 08/18/24 12:46 60 17 97 Room Air 08/18/24 12:46 97.9 60 17 96/64 (75) 97 97.9 08/18/24 11:49 97.5 62 16 94/39 (57) 96 Current Medications Medications (Trade) Dose Ordered Sig/Sara Route Start Time Stop Time Status Last Admin Acetaminophen/ Hydrocodone Bitart ([place] 5/325MG Tab) 1 tab ONCE ONCE PO 08/18/24 12:30 08/18/24 12:31 DC 08/18/24 12:43 Time of 1ST Reevaluation: 12:45 Reevaluation 1ST: Unchanged Patient Education/Counseling: Diagnosis, Treatment Family Education/Counseling: Diagnosis, Treatment Departure 1 Departure Time of Disposition: 13:37 (Patient's x-rays are benign she is still able to ambulate with a walker. Patient likely sprained her hip. We will discharge patient home with outpatient follow up) Impression: Primary Impression: Sprain of left hip Qualified Codes: S73.102A - Unspecified sprain of left hip, initial encounter Disposition: HOME / SELF CARE / HOMELESS Condition: Stable Referrals: MICHEL DIAZ MD Additional Instructions: You likely sprained your hip. You were referred to orthopedics to ensure this heals well. You were prescribed pain medication. Please take as directed. e-Prescriptions Hydrocodone-Acetaminophen (Hydrocodone Bitartrate/AC 10-325 mg) 1 Tab Tab 1 TAB PO QID PRN for 4 Days, #16 TAB Prov: IQRA YATES MD 08/18/24 Discharged With: Self Critical Care Note Critical Care Time?: No Stability Stability form required: No Heart Score Heart Score: Heart Score Response (Comments) Value History N/A 0 EKG N/A 0 Age N/A 0 Risk Factors N/A 0 Troponin N/A 0 Total 0 I personally scribed for IQRA YATES MD ([email or web address]) on 08/18/24 at 12:32. Electronically submitted by Carol Terrell ([facility]). IQRA YATES MD Aug 18, 2024 12:32
[2024-08-18] MEDS: HYDROcodone-ACET 5/325MG TAB PO ONE (12:43)
--- NOTE | 2024-08-18 13:03 | DVH ---
XY L KNEE 3V XRAY INDICATION: fall TECHNICAL DATA: Frontal , oblique and lateral views were obtained of the left knee. COMPARISON: XY L KNEE 3V XRAY on DOS: 01/06/24 FINDINGS: No fracture is identified. Medial, lateral and patellofemoral compartment joint spaces are maintained . Alignment is anatomic. Soft tissues are within normal limits. No joint effusion is demonstrated. IMPRESSION: 1. No acute fracture or dislocation of the left knee.
--- NOTE | 2024-08-18 13:05 | DVH ---
CLINICAL INDICATION: fall TECHNIQUE: 3 radiographic views of the right hip were obtained. Comparison: XY L HIP COMPLETE XRAY on DOS: 10/28/23 FINDINGS/IMPRESSION: There is no evidence of acute fracture or dislocation. The visualized joint space is well maintained. The alignment is anatomical. There are surgical clips overlying the pelvis.
[2024-08-18] MEDS ORDERED: HYDR-4798 PO (13:38)
[2024-08-18 14:03] VITALS: BP 133/97; PULSE 88; RESP 17; TEMP 98.4; O2SAT 98
== END 2024-08-18 14:05 | disposition home or self-care (01) ==
LOC: ER 11:25
DX: S73.192A Other sprain of left hip, initial encounter (principal); I11.0 Hypertensive heart disease with heart failure; I50.9 Heart failure, unspecified; I48.91 Unspecified atrial fibrillation; K21.9 Gastro-esophageal reflux disease without esophagitis; Z90.710 Acquired absence of both cervix and uterus; Z90.49 Acquired absence of other specified parts of digestive tract; Z79.01 Long term (current) use of anticoagulants; Z79.899 Other long term (current) drug therapy; X58.XXXA Exposure to other specified factors, initial encounter; Y93.89 Activity, other specified; Y92.89 Other specified places as the place of occurrence of the external cause; Y99.8 Other external cause status
CPT/HCPCS: 73502; 73562